=== PATIENT | male | born 1965 | race Caucasian/White ===

== ENCOUNTER 2018-06-11 15:37 | Inpatient (IN) | payer SELFPAY ==
[2018-06-11] VITALS (10 sets, daily range): BP systolic 125–158; BP diastolic 58–91; PULSE 61–87; RESP 14–20; TEMP 36.6–36.9; O2SAT 97–99; BMI 25.7; BMI 24.9
--- NOTE | 2018-06-11 15:45 | ED.RN ---
pt weakness to left arm started 8 days ago, weakness progressively worse, took him over an hour to tie his shoes this am thats when i figured i should probably get checked out.
--- NOTE | 2018-06-11 15:46 | RAD_ITS ---
STUDY: X-RAY CHEST REASON FOR EXAM: Male, 52 years old. PINCH NERVE FEELING TO LEFT SHOULDER WEEK HALF AGO APPX. DECREASED COORDINATION IN LEFT HAND. SLIGHT TINGLING TO LEFT FACE TECHNIQUE: Frontal and lateral views of the chest. COMPARISON: None. FINDINGS: The lungs are clear and expanded. There is no demonstrated pleural abnormality. Normal size heart. Normal mediastinum and anuel. Normal visualized pulmonary arteries. Normal visualized aortic arch and descending thoracic aorta. There are diffuse degenerative changes of the visualized thoracic spine. There is degenerative osteoarthritis of the bilateral shoulders. There is no demonstrated abnormality of the visualized soft tissue structures of the upper abdomen. RAD/Chest PA and Lateral IMPRESSION: Degenerative changes, as described above. No demonstrated acute cardiopulmonary process. Electronically Signed: Marie Caldera MD at 16:25 EDT Tel , Service support ,
--- NOTE | 2018-06-11 15:46 | EKG12_ITS ---
Test Reason : NEURO S/SX Blood Pressure : / mmHG Vent. Rate : 062 BPM Atrial Rate : 062 BPM P-R Int : 112 ms QRS Dur : 092 ms QT Int : 418 ms P-R-T Axes : 071 014 066 degrees QTc Int : 424 ms Normal sinus rhythm Normal ECG Confirmed by ORA YANES, YESSI ([id number]), make up editor MYRA HARRIS ([id number]) on 06/14/2018 2:49:25 PM Referred By: Matt Joyce Confirmed By:YESSI PAYAN MD
--- NOTE | 2018-06-11 15:46 | CT_ITS ---
STUDY: CT BRAIN WITHOUT CONTRAST REASON FOR EXAM: Male, 52 years old. LT FACE NUMBNESS, LOSS OF LEFT ARM CONTROL RADIATION DOSAGE (If Supplied By Facility): CTDIvol = ( 60.81 ) mGy, DLP = ( 1044.28 ) mGycm TECHNIQUE: Transaxial CT imaging of the brain was performed without administration of intravenous contrast material. Individualized dose optimization techniques were used for this CT. COMPARISON: None. FINDINGS: Normal soft tissue structures. Normal calvarium. Normal size ventricles and extra-axial spaces for the patient's age. There are areas of decreased attenuation within the white matter tracts of the supratentorial brain, consistent with microvascular disease changes. There is a cortical and subcortical decrease attenuation lesion in the right parietal lobe and right frontal lobe consistent with a subacute ischemic lesion in the right middle cerebral artery territory. Normal basal ganglia and thalami. Normal brainstem. Normal cerebellum. There is no intracranial hemorrhage. There are no findings of an acute ischemic infarction. Normal visualized paranasal sinuses. CT/Brain/Head without Contrast IMPRESSION: Chronic involutional changes of the brain. There is a cortical and subcortical decrease attenuation lesion in the right parietal lobe and right frontal lobe consistent with a subacute ischemic lesion in the right middle cerebral artery territory. Electronically Signed: Marie Caldera MD at 16:18 EDT Tel , Service support ,
--- NOTE | 2018-06-11 15:49 | ED.DCSUM_ITS ---
- ER Visit Summary Date of Service: 06/11/18 Chief Complaint: Left arm weakness History of Present Illness: The patient is a 52 M 2 weeks ago he had a pinched nerve on the left upper scapular region of his back. 8 days ago the left arm became weak and he had difficulty controlling it noting tingling especially in the fingers and hand. He states that as he walks he feels like he bumps into things with the arm. Denies any vision, speech, or swallowing changes. No palpitations. No leg symptoms. He states that when the arm stopped working he had a slight headache and was a little bit dizzy. Those symptoms have resolved. He is a smoker and denies any other medical problems. Physical Examination: Afebrile vital signs stable Gen: Well-nourished well-developed Head: Normocephalic atraumatic Eyes: Perrl EOMI ENT: TMs clear no rhinorrhea moist mucous membranes Neck: Supple no lymphadenopathy no JVD nontender CVS: Regular rate rhythm no murmurs normal S1-S2 Respiratory: No distress clear to auscultation bilaterally chest nontender Abdomen: Soft nontender nondistended normal bowel sounds no masses Back: Nontender Extremity: Nontender no edema Skin: Normal color no rash Neuro: alert orientated ?3 CN II-XII intact the left arm is noticeably weaker than the right but is able to stay up off the bed for 10 seconds. It is ataxic. He has decreased sensation compared to the right. Psych: Normal affect normal mood Test Results: CT demonstrated an area of subacute stroke. CTA was performed and shows no obvious large vessel occlusion. Basic labs negative. Emergency Department Course and Treatment: Plan is admission into the hospital Impression: 1. Subacute ischemic stroke This note was generated with [employer] dictation software. It may contain incorrect words, spelling, and punctuation that were not noted in review of the chart prior to signing ED Disposition - Plan for ED Patient: Chief Complaint: Weakness Referrals: NOT,DEFINED [NON-STAFF] -
--- NOTE | 2018-06-11 15:53 | NURSING ---
NO OLD EKGS
[2018-06-11 16:17] LABS: Absolute Lymphocyte Count 1.55 X10^3/ul (0.83-4.51); Absolute Neutrophil Count 2.1 X10^3/uL (2.0-7.7); Eosinophils% 2.4 % (0-5); Hematocrit 46.6 % (40-54); Hemoglobin 16.1 g/dl (13.0-16.5); Lymphocyte # 1.55 X10^3/ul (4.0); Mean Corp Hgb Conc 34.5 g/gl (32-36); Mean Platelet Vol. 11.6 fl (6.2-12.0); Monocyte# 0.46 X10^3/uL; Neutrophil # 2.08 X10^3/uL (2.7-7.7); Neutrophil % 49.6 % (47-70); POSITIVE COUNT NO; POSITIVE DIFFERENTIAL NO; POSITIVE MORPHOLOGY NO; Platelet Count 134 K/mm3 (150-450); RBC Distribution Width CV 13.5 % (11.6-14.6); RBC Distribution Width SD 41.3 fl (35.1-43.9); Red Blood Count 5.55 M/mm3 (4.6-6.2); White Blood Count 4.2 K/mm3 (4.4-11.0)
--- NOTE | 2018-06-11 16:23 | CT_ITS ---
STUDY: CTA OF THE BRAIN REASON FOR EXAM: Male, 52 years old. Cerebral vascular accident RADIATION DOSAGE (If Supplied By Facility): DLP = ( 851 ) mGycm TECHNIQUE: CT angiography was performed with a multi-detector CT scanner. Data acquisition was obtained from the skull base through the vertex following intravenous administration of 100 ml of Isovue-370. MIP images were reconstructed from the axial data set. Post-processing of the angiographic images was performed, with multiplanar reformation and 3D reconstruction. Individualized dose optimization techniques were used for this CT. COMPARISON: CTA neck same date. FINDINGS: Normal bilateral petrous carotid arteries. Normal right cavernous carotid artery with a normal supraclinoid bifurcation. Normal left cavernous carotid artery with a normal supraclinoid bifurcation. Normal right A1 segments of the anterior cerebral artery. Normal left A1 segments of the anterior cerebral artery. Normal intact anterior communicating artery (ACOM). Normal bilateral A2 segments of the anterior cerebral arteries. Normal right M1 and M2 segments of the middle cerebral arteries, with a normal M1 bifurcation. Normal left M1 and M2 segments of the middle cerebral arteries, with a normal M1 bifurcation. Normal right posterior communicating artery (PCOM). Normal left posterior communicating artery (PCOM). Normal bilateral vertebral arteries. Normal basilar artery with a normal basilar bifurcation. The visualized bilateral superior cerebellar (SCA) arteries are normal. Normal bilateral P1, P2 and visualized P3 segments of the posterior cerebral arteries. There is no demonstrated aneurysm of the [place]. There is no demonstrated abnormality of the visualized brain. CT/CTA Neck W/WO Contrast IMPRESSION: Normal [place] without a demonstrated aneurysm or hemodynamically significant stenosis. Electronically Signed: Reed Mathis, at 17:11 EDT Tel , Service support , STUDY: CTA NECK WITH CONTRAST REASON FOR EXAM: Male, 52 years old. Cerebrovascular accident RADIATION DOSAGE (If Supplied By Facility): DLP = ( 8 ) mGycm TECHNIQUE: CT angiography with multi-detector data acquisition was performed from the aortic arch to the skull base following intravenous administration of 100ML ml of Isovue 370 contrast. MIP images were reconstructed from the axial data set. Post-processing of the angiographic images was performed, with multiplanar reformation and 3D reconstruction. Individualized dose optimization techniques were used for this CT. COMPARISON: None. FINDINGS: Minimally ectatic aortic arch 3.3 cm. Patent bovine cervical arch branching. Normal subclavian arteries. Calcified plaque of the right carotid bulb and proximal ICA with less than 50% stenosis. Calcified plaque of the left carotid bulb and proximal ICA. Least dimension of the proximal ICA approximately 1.8 mm widening thereafter to a caliber of 5.3 mm. Approximate 70% stenosis. Patent thereafter into the skull base. Next line bilaterally no carotid dissection. Normal bilateral cervical vertebral arteries On survey of the cervical soft tissues there is asymmetric mild enlargement of the right tonsillar soft tissues as compared to the left and direct visualization is recommended for further assessment. The appearance is nonspecific. There is shotty lymphadenopathy of the cervical chains bilaterally, not pathologically enlarged. There is moderate symmetric enlargement of the right thyroid gland compared to the left. IMPRESSION:. Proximal left ICA stenosis in the range of 70%. Proximal right ICA stenosis less than 50%. No dissection. Normal cervical vertebral arteries. Asymmetry in the thickness of tonsillar soft tissues right greater than left require further clinical correlation. Right greater than left thyroid enlargement. Stenosis (if any)is quantified according to The [place] Symptomatic Carotid Endarterectomy Trial (NASCET). Crabber H, et al. Quantitative Vascular Measurements in Arterial Occlusive Disease. [employer] 2005;25:6513-1613. Electronically Signed: Reed Mathis, at 17:17 EDT Tel , Service support ,
--- NOTE | 2018-06-11 16:23 | CT_ITS ---
STUDY: CTA OF THE BRAIN REASON FOR EXAM: Male, 52 years old. Cerebral vascular accident RADIATION DOSAGE (If Supplied By Facility): DLP = ( 851 ) mGycm TECHNIQUE: CT angiography was performed with a multi-detector CT scanner. Data acquisition was obtained from the skull base through the vertex following intravenous administration of 100 ml of Isovue-370. MIP images were reconstructed from the axial data set. Post-processing of the angiographic images was performed, with multiplanar reformation and 3D reconstruction. Individualized dose optimization techniques were used for this CT. COMPARISON: CTA neck same date. FINDINGS: Normal bilateral petrous carotid arteries. Normal right cavernous carotid artery with a normal supraclinoid bifurcation. Normal left cavernous carotid artery with a normal supraclinoid bifurcation. Normal right A1 segments of the anterior cerebral artery. Normal left A1 segments of the anterior cerebral artery. Normal intact anterior communicating artery (ACOM). Normal bilateral A2 segments of the anterior cerebral arteries. Normal right M1 and M2 segments of the middle cerebral arteries, with a normal M1 bifurcation. Normal left M1 and M2 segments of the middle cerebral arteries, with a normal M1 bifurcation. Normal right posterior communicating artery (PCOM). Normal left posterior communicating artery (PCOM). Normal bilateral vertebral arteries. Normal basilar artery with a normal basilar bifurcation. The visualized bilateral superior cerebellar (SCA) arteries are normal. Normal bilateral P1, P2 and visualized P3 segments of the posterior cerebral arteries. There is no demonstrated aneurysm of the [place]. There is no demonstrated abnormality of the visualized brain. CT/CTA Head W/WO Contrast IMPRESSION: Normal [place] without a demonstrated aneurysm or hemodynamically significant stenosis. Electronically Signed: Reed Mathis, at 17:11 EDT Tel , Service support , STUDY: CTA NECK WITH CONTRAST REASON FOR EXAM: Male, 52 years old. Cerebrovascular accident RADIATION DOSAGE (If Supplied By Facility): DLP = ( 8 ) mGycm TECHNIQUE: CT angiography with multi-detector data acquisition was performed from the aortic arch to the skull base following intravenous administration of 100ML ml of Isovue 370 contrast. MIP images were reconstructed from the axial data set. Post-processing of the angiographic images was performed, with multiplanar reformation and 3D reconstruction. Individualized dose optimization techniques were used for this CT. COMPARISON: None. FINDINGS: Minimally ectatic aortic arch 3.3 cm. Patent bovine cervical arch branching. Normal subclavian arteries. Calcified plaque of the right carotid bulb and proximal ICA with less than 50% stenosis. Calcified plaque of the left carotid bulb and proximal ICA. Least dimension of the proximal ICA approximately 1.8 mm widening thereafter to a caliber of 5.3 mm. Approximate 70% stenosis. Patent thereafter into the skull base. Next line bilaterally no carotid dissection. Normal bilateral cervical vertebral arteries On survey of the cervical soft tissues there is asymmetric mild enlargement of the right tonsillar soft tissues as compared to the left and direct visualization is recommended for further assessment. The appearance is nonspecific. There is shotty lymphadenopathy of the cervical chains bilaterally, not pathologically enlarged. There is moderate symmetric enlargement of the right thyroid gland compared to the left. IMPRESSION:. Proximal left ICA stenosis in the range of 70%. Proximal right ICA stenosis less than 50%. No dissection. Normal cervical vertebral arteries. Asymmetry in the thickness of tonsillar soft tissues right greater than left require further clinical correlation. Right greater than left thyroid enlargement. Stenosis (if any)is quantified according to The [place] Symptomatic Carotid Endarterectomy Trial (NASCET). Lumber Salvager H, et al. Quantitative Vascular Measurements in Arterial Occlusive Disease. [employer] 2005;25:5359-5594. Electronically Signed: Reed Mathis, at 17:17 EDT Tel , Service support ,
[2018-06-11 16:31] LABS: ALB/GLOB Ratio 1.1 RATIO (0.9-2.4); AST(SGOT) 20 U/L (15-37); Alanine Aminotransfer ALT/SGPT 35 U/L (16-61); Albumin, Serum 3.6 g/dL (3.2-5.0); Alkaline Phosphatase 110 U/L (45-117); Anion Gap 8 (5-15); BUN 11 mg/dL (7-18); BUN/Creat Ratio 15.1 RATIO (10-20); Calcium,Total 8.8 mg/dL (8.5-10.1); Chloride 106 mmol/L (98-107); Creatinine, Serum 0.73 mg/dL (0.70-1.30); EST Glomerular Filtration Rate 121 mL/min (>60); Est Glom Filt Rate - Afr Amer 146 mL/min (>60); Estimated Creatinine Clearance 121.06 ml/min; Globulin 3.4 g/dL (2.2-4.2); Glucose 117 mg/dL (74-106); Potassium 3.8 mmol/L (3.5-5.1); Sodium Level 141 mmol/L (136-145)
[2018-06-11 16:33] LABS: International Normalized Ratio 1.1
[2018-06-11 16:34] LABS: Partial Thromboplast Time 28.5 Seconds (24.1-36.2)
--- NOTE | 2018-06-11 19:12 | PCM.HP.STD ---
Problem List (1) CVA (cerebral vascular accident) Status: Acute History of Present Illness Date of Admission: 06/11/18 Chief Complaint: left arm weakness and ataxia The patient is a 52 year old M diana with a seven-day history of left arm weakness and ataxia. Came to the emergency room and had a CAT scan that showed cortical and subcortical decreased attenuation within the right part parietal lobe and right frontal lobe consistent with subacute ischemic lesion in the right MCA territory. CTA was unremarkable. CTA of the neck showed 70% stenosis of the left carotid bulb and right the carotid bulb of less than 50% stenosis. Patient has never had a stroke before. Patient be admitted for further stroke workup. [] Past Medical History Allergies No Known Allergies Allergy (Unverified 06/11/18 15:26) Home Medications: Ambulatory Orders Medication Instructions Recorded NK 06/11/18 Lives: Alone Smoking Status: Heavy Smoker (>10/day) Tobacco Use: Cigarettes Alcohol: Rare Drugs: None - *Family History Maternal History Items: - - No history of stroke Review of Systems Constitutional: Denies: Chills, Fever, Weight Change Eyes: Denies: Blurred vision, Double vision HEENT: Denies: Head Aches, Sinus Congestion, Sinus Drainage Cardiovascular: Denies: Chest Pain, Palpitations Respiratory: Denies: Cough, Shortness of breath at rest, Sputum production Gastrointestinal: Denies: Abdominal Pain, Nausea, Vomiting Genitourinary: Denies: Dysuria Musculoskeletal: Denies: Joint Pain, Joint Tenderness Skin: Denies: Rash, Wounds Neurological: Reports: Incoordination - Left upper extremity, Numbness - Left upper extremity. Denies: Focal weakness, Tingling Psychiatric: Denies: Anxiety, Depression Endocrine: Denies: Change in Body Habitus Hematologic/ Lymphatic: Denies: Easy Bruising, Easy Bleeding, Hx of blood clot Comment: All review of systems are negative except as mentioned in the history of present illness and the other review of systems. VTE Information - Inpt Only VTE Present on Admission: No VTE Mechan Device Prophylaxis: None VTE Pharm Prophylaxis ordered?: Yes Patient Problems: Active and Suspected Problems (Last Reviewed 06/11/18 @ 17:13 by RONNY Harper) CVA (cerebral vascular accident) (Acute) - Physical Exam General: Alert, Cooperative, No apparent distress HEENT: Atraumatic, PERRLA, EOMI, Normocephalic Oral: Moist Mucosa, No Gingival or Mucosal Lesions/ Ulcerations Neck: Negative Carotid Bruits, No Nodes, Thyroid Normal Size and Texture Lungs: Clear to auscultation, Normal air movement, No rhonchi, No wheeze Cardiovascular: Regular rate, Regular Rhythm, Normal S1, Normal S2, No murmurs Abdomen: Bowel Sounds Present, Soft, Non Tender, Non-Distended, No Hepato-splenomegaly Extremities: No edema, No Calf Tenderness Skin: No rashes, No breakdown Musculoskeletal: No Tenderness to Palpation of Joints or Extremities, No Muscle Wasting, Cachexia Neurological: Cranial nerves II-XII grossly intact, Deep Tendon Reflexes 2+/4 and Symmetrical, Muscle tone normal, Coordination normal - With the exception of the left upper extremity with patient had noted ataxia., - - Muscle strength 3 out of 5 in the left upper extremity. 5/5 in the right upper extremity, right lower extremity and left lower extremity. Psych/Mental Status: Normal Affect, Appropriate Vital Signs Temp Pulse Resp BP Pulse Ox 36.6 C 80 16 126/58 H 97 06/11/18 15:45 06/11/18 18:18 06/11/18 18:18 06/11/18 18:18 06/11/18 18:18 Oxygen Delivery Method Room Air Weight: 78.925 kg Body Mass Index (BMI) 25.7 Laboratory Tests Past 24 Hrs 06/11/18 06/11/18 06/11/18 15:55 15:55 15:55 WBC 4.2 L RBC 5.55 Hgb 16.1 Hct 46.6 MCV 84.0 MCH 29.0 MCHC 34.5 RDW 13.5 RDW Differential 41.3 Plt Count 134 L MPV 11.6 Immature Gran % (Auto) 0.000 Neut % (Auto) 49.6 Lymph % (Auto) 37.0 [place] % (Auto) 11.0 H Eos % (Auto) 2.4 Baso % (Auto) 0.0 Absolute Neuts (auto) 2.1 Absolute Lymphs (auto) 1.55 Total Counted Not Reportable PT 14.0 INR 1.1 APTT 28.5 Sodium 141 Potassium 3.8 Chloride 106 Carbon Dioxide 27.0 Anion Gap 8 BUN 11 Creatinine 0.73 Estim Creat Clear Calc 121.06 Est GFR (MDRD) Af Amer 146 Est GFR (MDRD) Non-Af 121 BUN/Creatinine Ratio 15.1 Glucose 117 H Calcium 8.8 Total Bilirubin 0.40 AST 20 ALT 35 Alkaline Phosphatase 110 Total Protein 7.0 Albumin 3.6 Globulin 3.4 Albumin/Globulin Ratio 1.1 Clinical Impression(s) from Imaging Studies Brain CT 06/11/18 15:46 IMPRESSION: Chronic involutional changes of the brain. There is a cortical and subcortical decrease attenuation lesion in the right parietal lobe and right frontal lobe consistent with a subacute ischemic lesion in the right middle cerebral artery territory. Electronically Signed: Marie Caldera MD at 16:18 EDT Tel , Service support , Chest X-Ray 06/11/18 15:46 IMPRESSION: Degenerative changes, as described above. No demonstrated acute cardiopulmonary process. Electronically Signed: Marie Caldera MD at 16:25 EDT Tel , Service support , Head CTA 06/11/18 16:23 IMPRESSION: Normal [place] without a demonstrated aneurysm or hemodynamically significant stenosis. Electronically Signed: Reed Mathis at 17:11 EDT Tel , Service support , STUDY: CTA NECK WITH CONTRAST REASON FOR EXAM: Male, 52 years old. Cerebrovascular accident RADIATION DOSAGE (If Supplied By Facility): DLP = ( 8 ) mGycm TECHNIQUE: CT angiography with multi-detector data acquisition was performed from the aortic arch to the skull base following intravenous administration of 100ML ml of Isovue 370 contrast. MIP images were reconstructed from the axial data set. Post-processing of the angiographic images was performed, with multiplanar reformation and 3D reconstruction. Individualized dose optimization techniques were used for this CT. COMPARISON: None. FINDINGS: Minimally ectatic aortic arch 3.3 cm. Patent bovine cervical arch branching. Normal subclavian arteries. Calcified plaque of the right carotid bulb and proximal ICA with less than 50% stenosis. Calcified plaque of the left carotid bulb and proximal ICA. Least dimension of the proximal ICA approximately 1.8 mm widening thereafter to a caliber of 5.3 mm. Approximate 70% stenosis. Patent thereafter into the skull base. Next line bilaterally no carotid dissection. Normal bilateral cervical vertebral arteries On survey of the cervical soft tissues there is asymmetric mild enlargement of the right tonsillar soft tissues as compared to the left and direct visualization is recommended for further assessment. The appearance is nonspecific. There is shotty lymphadenopathy of the cervical chains bilaterally, not pathologically enlarged. There is moderate symmetric enlargement of the right thyroid gland compared to the left. IMPRESSION:. Proximal left ICA stenosis in the range of 70%. Proximal right ICA stenosis less than 50%. No dissection. Normal cervical vertebral arteries. Asymmetry in the thickness of tonsillar soft tissues right greater than left require further clinical correlation. Right greater than left thyroid enlargement. Stenosis (if any)is quantified according to The [place] Symptomatic Carotid Endarterectomy Trial (NASCET). Dena H, et al. Quantitative Vascular Measurements in Arterial Occlusive Disease. [employer] 2005;25:8795-7407. Electronically Signed: Reed Mathis, at 17:17 EDT Tel , Service support , ADDENDUM: 06/11/18 1834 IMPRESSION: Normal [place] without a demonstrated aneurysm or hemodynamically significant stenosis. Electronically Signed: Reed Mathis, at 17:11 EDT Tel , Service support , STUDY: CTA NECK WITH CONTRAST REASON FOR EXAM: Male, 52 years old. Cerebrovascular accident RADIATION DOSAGE (If Supplied By Facility): DLP = ( 8 ) mGycm TECHNIQUE: CT angiography with multi-detector data acquisition was performed from the aortic arch to the skull base following intravenous administration of 100ML ml of Isovue 370 contrast. MIP images were reconstructed from the axial data set. Post-processing of the angiographic images was performed, with multiplanar reformation and 3D reconstruction. Individualized dose optimization techniques were used for this CT. COMPARISON: None. FINDINGS: Minimally ectatic aortic arch 3.3 cm. Patent bovine cervical arch branching. Normal subclavian arteries. Calcified plaque of the right carotid bulb and proximal ICA with less than 50% stenosis. Calcified plaque of the left carotid bulb and proximal ICA. Least dimension of the proximal ICA approximately 1.8 mm widening thereafter to a caliber of 5.3 mm. Approximate 70% stenosis. Patent thereafter into the skull base. Next line bilaterally no carotid dissection. Normal bilateral cervical vertebral arteries On survey of the cervical soft tissues there is asymmetric mild enlargement of the right tonsillar soft tissues as compared to the left and direct visualization is recommended for further assessment. The appearance is nonspecific. There is shotty lymphadenopathy of the cervical chains bilaterally, not pathologically enlarged. There is moderate symmetric enlargement of the right thyroid gland compared to the left. IMPRESSION:. Proximal left ICA stenosis in the range of 70%. Proximal right ICA stenosis less than 50%. No dissection. Normal cervical vertebral arteries. Asymmetry in the thickness of tonsillar soft tissues right greater than left require further clinical correlation. Right greater than left thyroid enlargement. Stenosis (if any)is quantified according to The [place] Symptomatic Carotid Endarterectomy Trial (NASCET). Dena H, et al. Quantitative Vascular Measurements in Arterial Occlusive Disease. [employer] 2005;25:4212-0522. Electronically Signed: Reed Mathis, at 17:17 EDT Tel , Service support , ADDENDUM: 06/11/18 1834 Neck CTA 06/11/18 16:23 IMPRESSION: Normal [place] without a demonstrated aneurysm or hemodynamically significant stenosis. Electronically Signed: Reed Mathis, at 17:11 EDT Tel , Service support , STUDY: CTA NECK WITH CONTRAST REASON FOR EXAM: Male, 52 years old. Cerebrovascular accident RADIATION DOSAGE (If Supplied By Facility): DLP = ( 8 ) mGycm TECHNIQUE: CT angiography with multi-detector data acquisition was performed from the aortic arch to the skull base following intravenous administration of 100ML ml of Isovue 370 contrast. MIP images were reconstructed from the axial data set. Post-processing of the angiographic images was performed, with multiplanar reformation and 3D reconstruction. Individualized dose optimization techniques were used for this CT. COMPARISON: None. FINDINGS: Minimally ectatic aortic arch 3.3 cm. Patent bovine cervical arch branching. Normal subclavian arteries. Calcified plaque of the right carotid bulb and proximal ICA with less than 50% stenosis. Calcified plaque of the left carotid bulb and proximal ICA. Least dimension of the proximal ICA approximately 1.8 mm widening thereafter to a caliber of 5.3 mm. Approximate 70% stenosis. Patent thereafter into the skull base. Next line bilaterally no carotid dissection. Normal bilateral cervical vertebral arteries On survey of the cervical soft tissues there is asymmetric mild enlargement of the right tonsillar soft tissues as compared to the left and direct visualization is recommended for further assessment. The appearance is nonspecific. There is shotty lymphadenopathy of the cervical chains bilaterally, not pathologically enlarged. There is moderate symmetric enlargement of the right thyroid gland compared to the left. IMPRESSION:. Proximal left ICA stenosis in the range of 70%. Proximal right ICA stenosis less than 50%. No dissection. Normal cervical vertebral arteries. Asymmetry in the thickness of tonsillar soft tissues right greater than left require further clinical correlation. Right greater than left thyroid enlargement. Stenosis (if any)is quantified according to The [place] Symptomatic Carotid Endarterectomy Trial (NASCET). Dena H, et al. Quantitative Vascular Measurements in Arterial Occlusive Disease. [employer] 2005;25:6458-1235. Electronically Signed: Reed Mathis, at 17:17 EDT Tel , Service support , ADDENDUM: 06/11/181834 ADDENDUM: 06/11/181834 IMPRESSION: Normal [place] without a demonstrated aneurysm or hemodynamically significant stenosis. Electronically Signed: Reed Mathis, at 17:11 EDT Tel , Service support , STUDY: CTA NECK WITH CONTRAST REASON FOR EXAM: Male, 52 years old. Cerebrovascular accident RADIATION DOSAGE (If Supplied By Facility): DLP = ( 8 ) mGycm TECHNIQUE: CT angiography with multi-detector data acquisition was performed from the aortic arch to the skull base following intravenous administration of 100ML ml of Isovue 370 contrast. MIP images were reconstructed from the axial data set. Post-processing of the angiographic images was performed, with multiplanar reformation and 3D reconstruction. Individualized dose optimization techniques were used for this CT. COMPARISON: None. FINDINGS: Minimally ectatic aortic arch 3.3 cm. Patent bovine cervical arch branching. Normal subclavian arteries. Calcified plaque of the right carotid bulb and proximal ICA with less than 50% stenosis. Calcified plaque of the left carotid bulb and proximal ICA. Least dimension of the proximal ICA approximately 1.8 mm widening thereafter to a caliber of 5.3 mm. Approximate 70% stenosis. Patent thereafter into the skull base. Next line bilaterally no carotid dissection. Normal bilateral cervical vertebral arteries On survey of the cervical soft tissues there is asymmetric mild enlargement of the right tonsillar soft tissues as compared to the left and direct visualization is recommended for further assessment. The appearance is nonspecific. There is shotty lymphadenopathy of the cervical chains bilaterally, not pathologically enlarged. There is moderate symmetric enlargement of the right thyroid gland compared to the left. IMPRESSION:. Proximal left ICA stenosis in the range of 70%. Proximal right ICA stenosis less than 50%. No dissection. Normal cervical vertebral arteries. Asymmetry in the thickness of tonsillar soft tissues right greater than left require further clinical correlation. Right greater than left thyroid enlargement. Stenosis (if any)is quantified according to The [place] Symptomatic Carotid Endarterectomy Trial (NASCET). [employer] H, et al. Quantitative Vascular Measurements in Arterial Occlusive Disease. [employer] 2005;25:9564-7183. Electronically Signed: Reed Mathis, at 17:17 EDT Tel , Service support , Assessment/Plan All Active Problems (Last Reviewed 06/11/18 @ 17:13 by RONNY Harper) CVA (cerebral vascular accident) (Acute) 1. Stroke Subacute at the time of onset was likely last week when his symptoms began Complete stroke workup with an MRI of the brain, echocardiogram, neurology consultation, physical and occupational therapy evaluate Check bedside swallow evaluation. If patient fails then consult speech therapy Aspirin and high intensity statin Patient advised that smoking is the biggest preventable risk factor for his stroke and advised to stop 2. Carotid stenosis Bilateral but only 50% on the right. Will need to be followed up as outpatient no indication for carotid endarterectomy now 3. Tobacco abuse: Advised cessation. 4. DVT prophylaxis with Lovenox Discussed with the patient's brother at bedside. Code Visit Inpatient E&M: 91996 Init Hosp L3
--- NOTE | 2018-06-11 19:17 | HP.PCM_ITS ---
Problem List (1) CVA (cerebral vascular accident) Status: Acute History of Present Illness Date of Admission: 06/11/18 Chief Complaint: left arm weakness and ataxia The patient is a 52 year old M diana with a seven-day history of left arm weakness and ataxia. Came to the emergency room and had a CAT scan that showed cortical and subcortical decreased attenuation within the right part parietal lobe and right frontal lobe consistent with subacute ischemic lesion in the right MCA territory. CTA was unremarkable. CTA of the neck showed 70% stenosis of the left carotid bulb and right the carotid bulb of less than 50% stenosis. Patient has never had a stroke before. Patient be admitted for further stroke workup. [] Past Medical History Allergies No Known Allergies Allergy (Unverified 06/11/18 15:26) Home Medications: Ambulatory Orders Medication Instructions Recorded NK 06/11/18 Lives: Alone Smoking Status: Heavy Smoker (>10/day) Tobacco Use: Cigarettes Alcohol: Rare Drugs: None - *Family History Maternal History Items: - - No history of stroke Review of Systems Constitutional: Denies: Chills, Fever, Weight Change Eyes: Denies: Blurred vision, Double vision HEENT: Denies: Head Aches, Sinus Congestion, Sinus Drainage Cardiovascular: Denies: Chest Pain, Palpitations Respiratory: Denies: Cough, Shortness of breath at rest, Sputum production Gastrointestinal: Denies: Abdominal Pain, Nausea, Vomiting Genitourinary: Denies: Dysuria Musculoskeletal: Denies: Joint Pain, Joint Tenderness Skin: Denies: Rash, Wounds Neurological: Reports: Incoordination - Left upper extremity, Numbness - Left upper extremity. Denies: Focal weakness, Tingling Psychiatric: Denies: Anxiety, Depression Endocrine: Denies: Change in Body Habitus Hematologic/ Lymphatic: Denies: Easy Bruising, Easy Bleeding, Hx of blood clot Comment: All review of systems are negative except as mentioned in the history of present illness and the other review of systems. VTE Information - Inpt Only VTE Present on Admission: No VTE Mechan Device Prophylaxis: None VTE Pharm Prophylaxis ordered?: Yes Patient Problems: Active and Suspected Problems (Last Reviewed 06/11/18 @ 17:13 by RONNY Harper) CVA (cerebral vascular accident) (Acute) - Physical Exam General: Alert, Cooperative, No apparent distress HEENT: Atraumatic, PERRLA, EOMI, Normocephalic Oral: Moist Mucosa, No Gingival or Mucosal Lesions/ Ulcerations Neck: Negative Carotid Bruits, No Nodes, Thyroid Normal Size and Texture Lungs: Clear to auscultation, Normal air movement, No rhonchi, No wheeze Cardiovascular: Regular rate, Regular Rhythm, Normal S1, Normal S2, No murmurs Abdomen: Bowel Sounds Present, Soft, Non Tender, Non-Distended, No Hepato-spl enomegaly Extremities: No edema, No Calf Tenderness Skin: No rashes, No breakdown Musculoskeletal: No Tenderness to Palpation of Joints or Extremities, No Muscle Wasting, Cachexia Neurological: Cranial nerves II-XII grossly intact, Deep Tendon Reflexes 2+/4 and Symmetrical, Muscle tone normal, Coordination normal - With the exception of the left upper extremity with patient had noted ataxia., - - Muscle strength 3 out of 5 in the left upper extremity. 5/5 in the right upper extremity, right lower extremity and left lower extremity. Psych/Mental Status: Normal Affect, Appropriate Vital Signs Temp Pulse Resp BP Pulse Ox 36.6 C 80 16 126/58 H 97 06/11/18 15:45 06/11/18 18:18 06/11/18 18:18 06/11/18 18:18 06/11/18 18:18 Oxygen Delivery Method Room Air Weight: 78.925 kg Body Mass Index (BMI) 25.7 Laboratory Tests Past 24 Hrs 06/11/18 06/11/18 06/11/18 15:55 15:55 15:55 WBC 4.2 L RBC 5.55 Hgb 16.1 Hct 46.6 MCV 84.0 MCH 29.0 MCHC 34.5 RDW 13.5 RDW Differential 41.3 Plt Count 134 L MPV 11.6 Immature Gran % (Auto) 0.000 Neut % (Auto) 49.6 Lymph % (Auto) 37.0 Vernon % (Auto) 11.0 H Eos % (Auto) 2.4 Baso % (Auto) 0.0 Absolute Neuts (auto) 2.1 Absolute Lymphs (auto) 1.55 Total Counted Not Reportable PT 14.0 INR 1.1 APTT 28.5 Sodium 141 Potassium 3.8 Chloride 106 Carbon Dioxide 27.0 Anion Gap 8 BUN 11 Creatinine 0.73 Estim Creat Clear Calc 121.06 Est GFR (MDRD) Af Amer 146 Est GFR (MDRD) Non-Af 121 BUN/Creatinine Ratio 15.1 Glucose 117 H Calcium 8.8 Total Bilirubin 0.40 AST 20 ALT 35 Alkaline Phosphatase 110 Total Protein 7.0 Albumin 3.6 Globulin 3.4 Albumin/Globulin Ratio 1.1 Clinical Impression(s) from Imaging Studies Brain CT 06/11/18 15:46 IMPRESSION: Chronic involutional changes of the brain. There is a cortical and subcortical decrease attenuation lesion in the right parietal lobe and right frontal lobe consistent with a subacute ischemic lesion in the right middle cerebral artery territory. Electronically Signed: Marie Caldera MD at 16:18 EDT Tel , Service support , Chest X-Ray 06/11/18 15:46 IMPRESSION: Degenerative changes, as described above. No demonstrated acute cardiopulmonary process. Electronically Signed: Marie Caldera MD at 16:25 EDT Tel , Service support , Head CTA 06/11/18 16:23 IMPRESSION: Normal [place] without a demonstrated aneurysm or hemodynamically significant stenosis. Electronically Signed: Reed Mathis at 17:11 EDT Tel , Service support , STUDY: CTA NECK WITH CONTRAST REASON FOR EXAM: Male, 52 years old. Cerebrovascular accident RADIATION DOSAGE (If Supplied By Facility): DLP = ( 8 ) mGycm TECHNIQUE: CT angiography with multi-detector data acquisition was performed from the aortic arch to the skull base following intravenous administration of 100ML ml of Isovue 370 contrast. MIP images were reconstructed from the axial data set. Post-processing of the angiographic images was performed, with multiplanar reformation and 3D reconstruction. Individualized dose optimization techniques were used for this CT. COMPARISON: None. FINDINGS: Minimally ectatic aortic arch 3.3 cm. Patent bovine cervical arch branching. Normal subclavian arteries. Calcified plaque of the right carotid bulb and proximal ICA with less than 50% stenosis. Calcified plaque of the left carotid bulb and proximal ICA. Least dimension of the proximal ICA approximately 1.8 mm widening thereafter to a caliber of 5.3 mm. Approximate 70% stenosis. Patent thereafter into the skull base. Next line bilaterally no carotid dissection. Normal bilateral cervical vertebral arteries On survey of the cervical soft tissues there is asymmetric mild enlargement of the right tonsillar soft tissues as compared to the left and direct visualization is recommended for further assessment. The appearance is nonspecific. There is shotty lymphadenopathy of the cervical chains bilaterally, not pathologically enlarged. There is moderate symmetric enlargement of the right thyroid gland compared to the left. IMPRESSION:. Proximal left ICA stenosis in the range of 70%. Proximal right ICA stenosis less than 50%. No dissection. Normal cervical vertebral arteries. Asymmetry in the thickness of tonsillar soft tissues right greater than left require further clinical correlation. Right greater than left thyroid enlargement. Stenosis (if any)is quantified according to The [place] Symptomatic Carotid Endarterectomy Trial (NASCET). Dena H, et al. Quantitative Vascular Measurements in Arterial Occlusive Disease. [employer] 2005;25:8684-4150. Electronically Signed: Reed Mathis, at 17:17 EDT Tel , Service support , ADDENDUM: 06/11/18 1834 IMPRESSION: Normal [place] without a demonstrated aneurysm or hemodynamically significant stenosis. Electronically Signed: Reed Mathis, at 17:11 EDT Tel , Service support , STUDY: CTA NECK WITH CONTRAST REASON FOR EXAM: Male, 52 years old. Cerebrovascular accident RADIATION DOSAGE (If Supplied By Facility): DLP = ( 8 ) mGycm TECHNIQUE: CT angiography with multi-detector data acquisition was performed from the aortic arch to the skull base following intravenous administration of 100ML ml of Isovue 370 contrast. MIP images were reconstructed from the axial data set. Post-processing of the angiographic images was performed, with multiplanar reformation and 3D reconstruction. Individualized dose optimization techniques were used for this CT. COMPARISON: None. FINDINGS: Minimally ectatic aortic arch 3.3 cm. Patent bovine cervical arch branching. Normal subclavian arteries. Calcified plaque of the right carotid bulb and proximal ICA with less than 50% stenosis. Calcified plaque of the left carotid bulb and proximal ICA. Least dimension of the proximal ICA approximately 1.8 mm widening thereafter to a caliber of 5.3 mm. Approximate 70% stenosis. Patent thereafter into the skull base. Next line bilaterally no carotid dissection. Normal bilateral cervical vertebral arteries On survey of the cervical soft tissues there is asymmetric mild enlargement of the right tonsillar soft tissues as compared to the left and direct visualization is recommended for further assessment. The appearance is nonspecific. There is shotty lymphadenopathy of the cervical chains bilaterally, not pathologically enlarged. There is moderate symmetric enlargement of the right thyroid gland compared to the left. IMPRESSION:. Proximal left ICA stenosis in the range of 70%. Proximal right ICA stenosis less than 50%. No dissection. Normal cervical vertebral arteries. Asymmetry in the thickness of tonsillar soft tissues right greater than left require further clinical correlation. Right greater than left thyroid enlargement. Stenosis (if any)is quantified according to The [place] Symptomatic Carotid Endarterectomy Trial (NASCET). [employer] Manager H, et al. Quantitative Vascular Measurements in Arterial Occlusive Disease. [employer] 2005;25:9633-6660. Electronically Signed: Reed Mathis, at 17:17 EDT Tel , Service support , ADDENDUM: 06/11/18 1834 Neck CTA 06/11/18 16:23 IMPRESSION: Normal [place] without a demonstrated aneurysm or hemodynamically significant stenosis. Electronically Signed: Reed Mathis at 17:11 EDT Tel , Service support , STUDY: CTA NECK WITH CONTRAST REASON FOR EXAM: Male, 52 years old. Cerebrovascular accident RADIATION DOSAGE (If Supplied By Facility): DLP = ( 8 ) mGycm TECHNIQUE: CT angiography with multi-detector data acquisition was performed from the aortic arch to the skull base following intravenous administration of 100ML ml of Isovue 370 contrast. MIP images were reconstructed from the axial data set. Post-processing of the angiographic images was performed, with multiplanar reformation and 3D reconstruction. Individualized dose optimization techniques were used for this CT. COMPARISON: None. FINDINGS: Minimally ectatic aortic arch 3.3 cm. Patent bovine cervical arch branching. Normal subclavian arteries. Calcified plaque of the right carotid bulb and proximal ICA with less than 50% stenosis. Calcified plaque of the left carotid bulb and proximal ICA. Least dimension of the proximal ICA approximately 1.8 mm widening thereafter to a caliber of 5.3 mm. Approximate 70% stenosis. Patent thereafter into the skull base. Next line bilaterally no carotid dissection. Normal bilateral cervical vertebral arteries On survey of the cervical soft tissues there is asymmetric mild enlargement of the right tonsillar soft tissues as compared to the left and direct visualization is recommended for further assessment. The appearance is nonspecific. There is shotty lymphadenopathy of the cervical chains bilaterally, not pathologically enlarged. There is moderate symmetric enlargement of the right thyroid gland compared to the left. IMPRESSION:. Proximal left ICA stenosis in the range of 70%. Proximal right ICA stenosis less than 50%. No dissection. Normal cervical vertebral arteries. Asymmetry in the thickness of tonsillar soft tissues right greater than left require further clinical correlation. Right greater than left thyroid enlargement. Stenosis (if any)is quantified according to The [place] Symptomatic Carotid Endarterectomy Trial (NASCET). Dena H, et al. Quantitative Vascular Measurements in Arterial Occlusive Disease. [employer] 2005;25:4233-3507. Electronically Signed: Reed Mathis, at 17:17 EDT Tel , Service support , ADDENDUM: 06/11/181834 ADDENDUM: 06/11/181834 IMPRESSION: Normal [place] without a demonstrated aneurysm or hemodynamically significant stenosis. Electronically Signed: Reed Mathis, at 17:11 EDT Tel , Service support , STUDY: CTA NECK WITH CONTRAST REASON FOR EXAM: Male, 52 years old. Cerebrovascular accident RADIATION DOSAGE (If Supplied By Facility): DLP = ( 8 ) mGycm TECHNIQUE: CT angiography with multi-detector data acquisition was performed from the aortic arch to the skull base following intravenous administration of 100ML ml of Isovue 370 contrast. MIP images were reconstructed from the axial data set. Post-processing of the angiographic images was performed, with multiplanar reformation and 3D reconstruction. Individualized dose optimization techniques were used for this CT. COMPARISON: None. FINDINGS: Minimally ectatic aortic arch 3.3 cm. Patent bovine cervical arch branching. Normal subclavian arteries. Calcified plaque of the right carotid bulb and proximal ICA with less than 50% stenosis. Calcified plaque of the left carotid bulb and proximal ICA. Least dimension of the proximal ICA approximately 1.8 mm widening thereafter to a caliber of 5.3 mm. Approximate 70% stenosis. Patent thereafter into the skull base. Next line bilaterally no carotid dissection. Normal bilateral cervical vertebral arteries On survey of the cervical soft tissues there is asymmetric mild enlargement of the right tonsillar soft tissues as compared to the left and direct visualization is recommended for further assessment. The appearance is nonspecific. There is shotty lymphadenopathy of the cervical chains bilaterally, not pathologically enlarged. There is moderate symmetric enlargement of the right thyroid gland compared to the left. IMPRESSION:. Proximal left ICA stenosis in the range of 70%. Proximal right ICA stenosis less than 50%. No dissection. Normal cervical vertebral arteries. Asymmetry in the thickness of tonsillar soft tissues right greater than left require further clinical correlation. Right greater than left thyroid enlargement. Stenosis (if any)is quantified according to The [place] Symptomatic Carotid Endarterectomy Trial (NASCET). Dena H, et al. Quantitative Vascular Measurements in Arterial Occlusive Disease. [employer] 2005;25:3208-3943. Electronically Signed: Reed Mathis, at 17:17 EDT Tel , Service support , Assessment/Plan All Active Problems (Last Reviewed 06/11/18 @ 17:13 by RONNY Harper) CVA (cerebral vascular accident) (Acute) 1. Stroke * Subacute at the time of onset was likely last week when his symptoms began * Complete stroke workup with an MRI of the brain, echocardiogram, neurology consultation, physical and occupational therapy evaluate * Check bedside swallow evaluation. If patient fails then consult speech therapy * Aspirin and high intensity statin * Patient advised that smoking is the biggest preventable risk factor for his stroke and advised to stop 2. Carotid stenosis * Bilateral but only 50% on the right. Will need to be followed up as outpatient no indication for carotid endarterectomy now 3. Tobacco abuse: Advised cessation. 4. DVT prophylaxis with Lovenox Discussed with the patient's brother at bedside. Code Visit Inpatient E&M: 08216 Init Hosp L3
--- NOTE | 2018-06-11 19:26 | ECHOD_ITS ---
Reason For Study: TIA/CVA Procedure This was a 2D Doppler, Color Flow transthoracic echocardiogram. Exam performed portable in patient room. Left Ventricle Normal LV size. Mild concentric left ventricular hypertrophy. Left ventricular systolic function is normal. The estimated ejection fraction is 55 %. No evidence for diastolic dysfunction. No regional wall motion abnormalities noted. Right Ventricle Normal RV size. Normal systolic function. Atria The left atrium is mildly enlarged. The right atrium is mildly enlarged. Bubble contrast study negative for right to left interatrial shunt. Mitral Valve Normal mitral valve. Tricuspid Valve Normal tricuspid valve. Aortic Valve Normal aortic valve. Trisinus/trileaflet aortic valve. Pulmonic Valve Normal pulmonic valve. Great Vessels Normal aortic root. The pulmonary artery is normal size. Normal inferior vena cava. Pericardium/Pleural No pericardial effusion. Medication Performed a rapid injection of agitated mix of 9 cc saline and 1cc air to assess for atrial septal defect. MMode/2D Measurements & Calculations LVIDd: 5.4 cm IVSd: 1.2 cm Ao root diam: 3.8 cm LVIDs: 4.4 cm LVPWd: 1.3 cm LA dimension: 4.3 cm RVDd: 4.9 cm FS: 18.9 % LAV(MOD-sp4): 79.8 ml LVAd ap4: 36.4 cm2 SV(MOD-sp4): 65.6 ml EDV(MOD-sp4): 134.6 ml EDV(sp4-el): 140.9 ml LVAs ap4: 23.6 cm2 ESV(MOD-sp4): 69.0 ml ESV(sp4-el): 69.3 ml EF(MOD-sp4): 48.7 % EF(sp4-el): 50.8 % SV(sp4-el): 71.6 ml LA A4 area: 24.4 cm2 RA A4 area: 22.0 cm2 Time Measurements MV dec time: 0.22 sec Doppler Measurements & Calculations MV E max pillo: 78.7 cm/sec Lat Peak E' Pillo: 11.5 cm/sec Med Peak E' Pillo: 6.8 cm/sec MV A max pillo: 47.7 cm/sec E/E' lat: 6.9 E/E' med: 11.6 MV E/A: 1.6 MV V2 max: 101.1 cm/sec MV P1/2t max pillo: 100.2 cm/sec Ao V2 max: 142.5 cm/sec MV max P.1 mmHg MV P1/2t: 130.2 msec Ao max P.1 mmHg MV V2 mean: 52.1 cm/sec MV dec slope: 225.4 cm/sec2 Ao V2 mean: 97.6 cm/sec MV mean P.4 mmHg MVA(P1/2t): 1.7 cm2 Ao mean P.2 mmHg MV V2 VTI: 33.7 cm Ao V2 VTI: 26.4 cm LV V1 max: 109.0 cm/sec PA V2 max: 95.3 cm/sec LV V1 max P.7 mmHg LV V1 mean P.0 mmHg LV V1 mean: 66.2 cm/sec LV V1 VTI: 19.1 cm Interpretation Summary Normal LV size. Mild concentric left ventricular hypertrophy. Left ventricular systolic function is normal. The estimated ejection fraction is 55 %. No evidence for diastolic dysfunction. Ordering Physician: Matt Joyce Referring Physician: Matt Joyce Performed By: Donald Hargrove RCS
[2018-06-11] MEDS: Aspirin 325 MG Tablet PO (20:35)
[2018-06-11] MEDS: Atorvastatin Calcium 80 MG Tablet PO (21:30)
[2018-06-12] VITALS (12 sets, daily range): BP systolic 122–140; BP diastolic 63–77; PULSE 56–79; RESP 14–16; TEMP 36.1–37.1; O2SAT 95–98; BMI 24.9
--- NOTE | 2018-06-12 06:00 | MRI_ITS ---
STUDY: MRI BRAIN WITH AND WITHOUT CONTRAST REASON FOR EXAM: Male, 52 years old. CVA, weakness. TECHNIQUE: Standardized multiplanar fat and water weighted pulse sequences were obtained. 8 ml of Gadavist contrast material was administered intravenously for the contrast portion of the examination. COMPARISON: CT head 11 June 2018 FINDINGS: Normal size of the ventricles and extra-axial spaces for the patient's age. There are multiple white matter hyperintensities, distributed throughout the deep white matter tracts of the cerebral hemispheres, consistent with moderate chronic white matter ischemic changes. There is predominant right parietal occipital region of ischemia was scattered areas of cortical ischemia within the right parietal and posterior frontal region consistent with focal areas of acute infarct. Contrast imaging demonstrates enhancement within the region of the right parietal occipital region. Cortical areas involvement the mid rolandic cortex likely corresponding to patient's left arm weakness. Normal T2* images of the brain without demonstrated susceptibility artifact. There is no demonstrated hemosiderin stain. Normal bilateral basal ganglia. Normal thalami. There is no extra-axial fluid accumulation. Normal flow voids within the major intracranial circulation suggesting patency by spin echo criteria. Normal venous enhancement. There is no enhancing intra-axial or extra-axial abnormality. Normal sella turcica, pituitary gland, infundibular stalk, optic chiasm and hypothalamus. Normal tectal plate and pineal gland. Normal midbrain, norma and medulla. Normal cerebellum. Normal basal cisterns. Normal bilateral temporal bones. Normal bilateral internal auditory canals. No demonstrated orbital abnormality, within the constraints of a routine brain study. Normal visualized paranasal sinuses. Normal calvarium and skull base. Normal visualized soft tissue structures. Normal visualized upper cervical spine. MRI/Brain W/WO Contrast IMPRESSION: 1. Findings consistent with right parieto-occipital watershed infarct with scattered areas of enhancement consistent with components of subacute infarct. Additional scattered areas of right parietal/posterior frontal lobe and rolandic cortex acute to subacute infarcts. No evidence of acute intracranial bleed. Electronically Signed: Capo Haley DO at 10:48 EDT , Service support ,
[2018-06-12 07:42] LABS: Cholesterol 94 mg/dL (200); High Density Lipoprotein 33 mg/dL; Triglycerides 67 mg/dL; Very Low Density Lipoprotein 13 mg/dL (5-40)
--- NOTE | 2018-06-12 07:57 | PN_ITS ---
Patient Problems: Active and Suspected Problems (Last Reviewed 06/11/18 @ 17:13 by RONNY Harper) CVA (cerebral vascular accident) (Acute) Subjective: Patient with no acute events since initial presentation. Patient notes left upper extremity weakness and ataxia is similar to ongoing with no marked improvement. Reviewed current workup including MRI with confirmation of recent stroke of decent extension, unremarkable echocardiogram, not severe appearing cholesterol, abnormal thyroid studies with recommendation for radioactive iodide uptake scan to be arranged outpatient. Discussed tobacco use and encouraged cessation. Patient understands awaiting neurology evaluation with possible recommendation for acute rehab transition. Patient denies fevers, chills, nausea, emesis, abdominal pain, chest pain or dyspnea. Objective: Physical Examination: General: awake, alert, oriented x 3 and cooperative, seated upright in bed in no apparent distress. Skin: normal color, turgor, no icterus, cyanosis. HEENT: AT/NC, EOMI, PERRLA, MMM, no carotid bruits although CTA does note less than 50% stenosis right ICA and approximate 70% stenosis left ICA. Lungs: Diminished breath sounds bilateral bases, moderate effort, no rales, ronchi or wheezing. Heart: Regular rate and rhythm; no gallop, rub audible. Abdomen: soft, NTTP, ND, normal BS. Extremities: no cyanosis, clubbing, or edema. Neurological: patient awake, alert, oriented x 3; cognitive function intact; pupils equally reactive to light and accomodation; cranial nerves II-XII grossly normal, moving all 4 extremities, no focal deficits, notable ataxia left upper extremity, strength 3 out of 5, upgoing Babinski left, heel to gerardo and finger to nose appropriate right side, limited finger to nose left side, left heel to gerardo normal-appearing, sensation intact. Psychiatric: affect appears normal, no acute evidence of depressive or anxiety feelings. Vitals/I&O's: Vital Signs Temp Pulse Resp BP Pulse Ox 98.2 F 57 L 14 132/77 H 97 06/12/18 03:48 06/12/18 07:22 06/12/18 03:48 06/12/18 03:48 06/12/18 03:48 Oxygen Delivery Method Room Air Weight: 168 lb 13.985 oz Body Mass Index (BMI) 24.9 Intake and Output for Last 24 Hours 06/10/18 06/11/18 06/12/18 23:59 23:59 23:59 Intake Total 240 / 240 120 / 120 Balance 240 / 240 120 / 120 Laboratory Results 06/11/18 15:55: WBC 4.2 L, RBC 5.55, Hgb 16.1, Hct 46.6, MCV 84.0, MCH 29.0, MCHC 34.5, RDW 13.5, RDW Differential 41.3, Plt Count 134 L, MPV 11.6, Immature Gran % (Auto) 0.000, Neut % (Auto) 49.6, Lymph % (Auto) 37.0, [place] % (Auto) 11.0 H, Eos % (Auto) 2.4, Baso % (Auto) 0.0, Absolute Neuts (auto) 2.1, Absolute Lymphs (auto) 1.55, Total Counted Not Reportable 06/11/18 15:55: PT 14.0, INR 1.1, APTT 28.5 06/11/18 15:55: Sodium 141, Potassium 3.8, Chloride 106, Carbon Dioxide 27.0, Anion Gap 8, BUN 11, Creatinine 0.73, Estim Creat Clear Calc 121.06, Est GFR (MDRD) Af Amer 146, Est GFR (MDRD) Non-Af 121, BUN/Creatinine Ratio 15.1, Glucose 117 H, Calcium 8.8, Total Bilirubin 0.40, AST 20, ALT 35, Alkaline Phosphatase 110, Total Protein 7.0, Albumin 3.6, Globulin 3.4, Albumin/Globulin Ratio 1.1 06/12/18 06:35: Triglycerides 67, Cholesterol 94, LDL Cholesterol 48, VLDL Cholesterol 13, HDL Cholesterol 33 L Current Medications Acetaminophen (Tylenol) 650 mg PO Q6H PRN PRN PRN Reason: Mild Pain (1-3)/Temp > 100.7 F Aspirin (Aspirin, Baby) 81 mg PO DAILY@0800 [facility] Atorvastatin Calcium (Lipitor) 80 mg PO QHS [facility] Last Admin: 06/11/18 21:30 Dose: 80 mg Enoxaparin Sodium (Lovenox) 40 mg SC DAILY@1000 [facility] Influenza Virus Vaccine Quadrival (Fluarix/Fluzone) 0.5 ml IM .ONCE ONE Stop: 06/12/18 10:01 Magnesium Hydroxide (Milk Of Magnesia) 30 ml PO DAILY PRN PRN Reason: Constipation Ondansetron HCl (Zofran) 4 mg IV Q8H PRN PRN PRN Reason: NAUSEA Sodium Chloride () 5 - 30 ml IV UD PRN PRN Reason: SALINE FLUSH Medical Necessity - Tobacco Use Smoking Status: Current every day smoker Tobacco Use: Cigarettes Assessment/Plan All Active Problems (Last Reviewed 06/11/18 @ 17:13 by RONNY Harper) CVA (cerebral vascular accident) (Acute) The patient is a 52 y/o M w/ PMHx: Tobacco use who presents to the [facility] ED on 06/11/18 with history of ongoing L sided upper extremity weakness and ataxia. L sided upper extremity weakness and ataxia secondary to Subacute R MCA Territory CVA: In the ED work-up included CBC w/ WBC 4.2, Hgb 16.1, Plts 134 without marked L shift, unremarkable coags, CMP w/ glucose 117 otherwise not marked, CT Head w/ chronic involutional changes, cortical and subcortical decreased attenuation lesions in the right parietal lobe, right frontal lobe consistent with a subacute ischemic lesion in the right middle cerebral artery territory, CTA Neck w/ minimally ectatic aortic arch 3.3 cm, patent bovine cervical arch branching, normal subclavian arteries, calcified plaque right carotid bulb and proximal ICA with less than 50% stenosis, calcified plaque left carotid bulb and proximal ICA, least dimension proximal ICA proximal 1.8 mm widening thereafter to be caliber of 5.3 mm with approximate 70% stenosis, patent thereafter into the skull base, no carotid dissection, normal bilateral cervical vertebral arteries, CXR w/ chronic changes with no acute process. ED vitals with initial BP 158/87. Admitted to PCU, MRI Brain w/ findings consistent with right parieto-occipital watershed infarct with scattered areas of enhancement consistent with components of subacute infarct, additional scattered areas of right parietal/posterior frontal lobe and rolandic cortex acute to subacute infarct with no acute evidence of intracranial bleed, CT Head w/ normal [place] of [place] without demonstrated aneurysm or significant stenosis, ECHO w/ normal LV size, mild concentric LVH, normal LV systolic function, EF 55%, no evidence for diastolic dysfunction, PT/OT/Speech/Nutrition evaluation per protocol. Given timeline appropriate to initial HTN regimen as sxs x 1 week, added low dose ACEI but if preference for permissive will defer to Neurology, maintain on asa, high dose statin w/ AM FLP w/ TG 67, TChol 94, LDL 48, VLDL 13, HDL 33, fall precautions. Neurology consulted, await input, may be appropriate for dual therapy with plavix for 4 weeks and then transition back to single agent, will await their evaluation. Given presentation suspect will be appropriate to transition to Acute Rehabilitation if amenable per Neurology. (2) BL Carotid Stenosis: CTA Neck w/ minimally ectatic aortic arch 3.3 cm, patent bovine cervical arch branching, normal subclavian arteries, calcified plaque right carotid bulb and proximal ICA with less than 50% stenosis, calcified plaque left carotid bulb and proximal ICA, least dimension proximal ICA proximal 1.8 mm widening thereafter to be caliber of 5.3 mm with approximate 70% stenosis, patent thereafter into the skull base, no carotid dissection, normal bilateral cervical vertebral arteries. Will plan referral to Dr. Alves for evaluation for L CEA. (3) Tobacco Abuse: Encouraged cessation, inpatient consultation per RT, NR if desired. (4) Primary Hyperthyroidism: TSH low, FT4 mildly elevated, consistent w/ primary hyperthyroidism, will need RAIU set-up as outpatient. (5) DVT Prophylaxis: SCDs, lovenox. Code Visit Inpatient E&M: 58785 Subs Hosp L2
[2018-06-12] MEDS: Aspirin 81 MG TAB.CHEW PO (08:03)
[2018-06-12 08:30] LABS: Magnesium 2.2 mg/dL (1.6-2.6); Thyroid Stim Hormone (TSH) < 0.01 uIU/mL (0.358-3.74)
--- NOTE | 2018-06-12 09:02 | CASEMGMT ---
Social Work Assessment Referral Date: 06/12/2018 Date of Assessment: 06/12/2018 Reason for consult: Initial assessment, self pay status Informant: SW Personal Status: SW met with pt as pt is listed as self-pay and to complete initial assessment. SW introduced self and role at [facility]. Pt is alert and orientated x4. Pt states that he lives alone in a two story home with no steps to enter the home. Pt states that he was previously independent with ADLs and that he currently still works. Pt states that he is self employed. Pt denied DME at home. Pt states that his preferred pharmacy is [facility] and he doesn't currently have a PCP. Pt confirms that he doesn't have insurance. SW provided financial resources to pt including HCAP application, prescription assistance, [employer], and [employer]. Pt denied Medicaid application as he states he makes too much for medicaid. SW also provided pt with PCP list. Pt states that his plan is to return home at discharge and denied additional needs or concerns at this time. Substance Abuse Hx: Pt denied Mental Health Hx: Pt denied Plan: Pt wants to return home at discharge. Pt denied additional needs or concerns at this time. Светлана Velasquez CRIME VICTIM SPECIALIST, POWER PLANT OPERATOR
[2018-06-12 09:14] LABS: T4 Free Direct 3.52 ng/dL (0.76-1.46)
[2018-06-12] MEDS: Enoxaparin 40 MG/0.4 ML Syringe SC (09:32)
[2018-06-12] MEDS: Lisinopril 5 MG Tablet PO (09:32)
--- NOTE | 2018-06-12 09:40 | CON.PCM_ITS ---
Reason for Consult Date of Consultation: 06/12/18 Reason for Consultation: cva History of Present Illness: The patient is a 52 year old M right handed white male, smoker, but otherwise healthy, hasnt seen a doctor in many years, reports 9 days ago had acute left arm weakness which has improved but persisted. came to hospital yesterday. po ok. denies recent illness or stress, or insomnia. denies snoring. reports last checked his blood pressure about one month ago and was normal. no f/c/sweats. works as residential real estate appraiser, no exposures. per admit h&p:The patient is a 52 year old M resents with a seven-day history of left arm weakness and ataxia. Came to the emergency room and had a CAT scan that showed cortical and subcortical decreased attenuation within the right part parietal lobe and right frontal lobe consistent with subacute ischemic lesion in the right MCA territory. CTA was unremarkable. CTA of the neck showed 70% stenosis of the left carotid bulb and right the carotid bulb of less than 50% stenosis. Patient has never had a stroke before. Patient be admitted for further stroke workup. Past Medical History Allergies No Known Allergies Allergy (Unverified 06/11/18 15:26) Home Medications: Ambulatory Orders Medication Instructions Recorded NK 06/11/18 Lives: Alone Smoking Status: Current every day smoker Tobacco Use: Cigarettes Alcohol: Rare Drugs: None - *Family History Maternal History Items: - - No history of stroke Review of Systems Constitutional: Denies: Chills, Fever, Weight Change HEENT: Denies: Head Aches, Sinus Congestion, Sinus Drainage Cardiovascular: Denies: Chest Pain, Palpitations Respiratory: Denies: Cough, Shortness of breath at rest, Sputum production Gastrointestinal: Denies: Abdominal Pain, Nausea, Vomiting Genitourinary: Denies: Dysuria Musculoskeletal: Denies: Joint Pain, Joint Tenderness Skin: Denies: Rash, Wounds Neurological: Denies: Numbness, Tingling, Focal weakness Psychiatric: Denies: Anxiety, Depression, Homicidal Ideations, Suicidal Ideations Hematologic/ Lymphatic: Denies: Easy Bruising, Easy Bleeding Patient Problems: Active and Suspected Problems (Last Reviewed 06/11/18 @ 17:13 by RONNY Harper) CVA (cerebral vascular accident) (Acute) - Physical Exam General: Alert, Oriented x3, Cooperative, No apparent distress HEENT: Atraumatic, PERRLA, EOMI Neurological: Cranial nerves II-XII grossly intact, Deep Tendon Reflexes 2+/4 and Symmetrical, Sensory exam intact to light touch and pain, - - left pronator drift and discoord. lle normal Vital Signs Temp Pulse Resp BP Pulse Ox 36.8 C 60 16 140/67 H 98 06/12/18 07:48 06/12/18 07:48 06/12/18 07:48 06/12/18 07:48 06/12/18 07:48 Oxygen Delivery Method Room Air Weight: 76.6 kg Body Mass Index (BMI) 24.9 Intake and Output for Last 24 Hours 06/10/18 06/11/18 06/12/18 23:59 23:59 23:59 Intake Total 240 / 240 120 / 120 Balance 240 / 240 120 / 120 Laboratory Tests Past 24 Hrs 06/11/18 06/11/18 06/11/18 15:55 15:55 15:55 WBC 4.2 L RBC 5.55 Hgb 16.1 Hct 46.6 MCV 84.0 MCH 29.0 MCHC 34.5 RDW 13.5 RDW Differential 41.3 Plt Count 134 L MPV 11.6 Immature Gran % (Auto) 0.000 Neut % (Auto) 49.6 Lymph % (Auto) 37.0 [place] % (Auto) 11.0 H Eos % (Auto) 2.4 Baso % (Auto) 0.0 Absolute Neuts (auto) 2.1 Absolute Lymphs (auto) 1.55 Total Counted Not Reportable PT 14.0 INR 1.1 APTT 28.5 Sodium 141 Potassium 3.8 Chloride 106 Carbon Dioxide 27.0 Anion Gap 8 BUN 11 Creatinine 0.73 Estim Creat Clear Calc 121.06 Est GFR (MDRD) Af Amer 146 Est GFR (MDRD) Non-Af 121 BUN/Creatinine Ratio 15.1 Glucose 117 H Calcium 8.8 Magnesium Total Bilirubin 0.40 AST 20 ALT 35 Alkaline Phosphatase 110 Total Protein 7.0 Albumin 3.6 Globulin 3.4 Albumin/Globulin Ratio 1.1 Triglycerides Cholesterol LDL Cholesterol VLDL Cholesterol HDL Cholesterol TSH Free T4 06/12/18 06/12/18 06/12/18 06:35 06:35 06:35 WBC RBC Hgb Hct MCV MCH MCHC RDW RDW Differential Plt Count MPV Immature Gran % (Auto) Neut % (Auto) Lymph % (Auto) [place] % (Auto) Eos % (Auto) Baso % (Auto) Absolute Neuts (auto) Absolute Lymphs (auto) Total Counted PT INR APTT Sodium Potassium Chloride Carbon Dioxide Anion Gap BUN Creatinine Estim Creat Clear Calc Est GFR (MDRD) Af Amer Est GFR (MDRD) Non-Af BUN/Creatinine Ratio Glucose Calcium Magnesium 2.2 Total Bilirubin AST ALT Alkaline Phosphatase Total Protein Albumin Globulin Albumin/Globulin Ratio Triglycerides 67 Cholesterol 94 LDL Cholesterol 48 VLDL Cholesterol 13 HDL Cholesterol 33 L TSH < 0.01 L Free T4 3.[address] and cta head and neck reviewed: right mca distribution subacute infarct, moderate size. Left ICA stenosis by my review at the bulb appears to be sub- critical mri reviewed, subacute right mca infarct, appearance consistent with thromboembolic phenomenon Current Home Med List Medication Instructions Recorded Confirmed Type NK 06/11/18 06/11/18 History Current Medications Acetaminophen 650 mg 06/11/18 19:26 Tylenol PO Q6H PRN PRN Mild Pain (1-3)/Temp > 100.7 F Aspirin 81 mg 06/12/18 08:00 06/12/18 08:03 Aspirin, Baby PO 81 mg DAILY@0800 [facility] Administration Atorvastatin Calcium 80 mg 06/11/18 22:00 06/11/18 21:30 Lipitor PO 80 mg QHS [facility] Administration Enoxaparin Sodium 40 mg 06/12/18 10:00 06/12/18 09:32 Lovenox SC 40 mg DAILY@1000 [facility] Administration Influenza Virus Vaccine Quadrival 0.5 ml 06/12/18 10:00 06/12/18 09:31 Fluarix/Fluzone IM 06/12/18 10:01 0.5 ml .ONCE ONE Administration Lisinopril 5 mg 06/12/18 10:00 06/12/18 09:32 Zestril PO 5 mg DAILY [facility] Administration Magnesium Hydroxide 30 ml 06/11/18 19:26 Milk Of Magnesia PO DAILY PRN Constipation Ondansetron HCl 4 mg 06/11/18 19:26 Zofran IV Q8H PRN PRN NAUSEA Sodium Chloride 5 - 30 ml 06/11/18 20:10 IV UD PRN SALINE FLUSH Assessment/Plan All Active Problems (Last Reviewed 06/11/18 @ 17:13 by RONNY Harper) CVA (cerebral vascular accident) (Acute) acute/subacute right mca infarct, severe left ica stenosis which appears asymptomatic. surface echo ok with bubble study agree with asa, statin, bp control needs darrel continue tele await opionion of dr hurt pt/ot/sp likely doesnt need rehab at this point dc tob
--- NOTE | 2018-06-12 11:05 | CASEMGMT ---
RN CM Assessment PCP: none. Pt lives in [place], [place] Specialists: none Pharmacy:[facility] Prescription coverage: No Living Arrangements: see PT/OT notes DME:none Social Work Consult: Yes, self pay status and pt may need Inpt Rehab. DC PLAN: undetermined. Pending neurology consultation and PT/OT recommendations re: Inpt Rehab. Pt is self pay, would likely need to complete KEE application. Justine HINESN RN ACM
[2018-06-12] MEDS: 0.9% NaCl Peripheral Flush Adult/Peds IV (15:31)
[2018-06-12] MEDS: Atorvastatin Calcium 80 MG Tablet PO (22:05)
[2018-06-13] VITALS (12 sets, daily range): BP systolic 124–155; BP diastolic 65–89; PULSE 54–66; RESP 16–18; TEMP 36.7–37.2; O2SAT 96–97; BMI 24.9
--- NOTE | 2018-06-13 08:31 | PN_ITS ---
Patient Problems: Active and Suspected Problems (Last Reviewed 06/11/18 @ 17:13 by RONNY Harper) CVA (cerebral vascular accident) (Acute) Subjective: Patient with no acute events overnight per self and per nursing report. Patient states very mild improvement to the ataxia and left upper extremity weakness otherwise feels similar to prior. Reviewed current plan of care which includes [facility]REE on Thursday in addition to evaluation per vascular surgery for carotid stenosis to which she is amenable. Noted that neurology felt he could be appropriate for outpatient therapies and patient was amenable. Patient denies fevers, chills, nausea, emesis, abdominal pain, chest pain or dyspnea. Objective: Physical Examination: General: awake, alert, oriented x 3 and cooperative, seated upright in bed in no apparent distress. Skin: normal color, turgor, no icterus, cyanosis. HEENT: AT/NC, EOMI, PERRLA, MMM. Lungs: Diminished breath sounds bilateral bases, moderate effort, no rales, ronchi or wheezing. Heart: Regular rate and rhythm; no gallop, rub audible. Abdomen: soft, NTTP, ND, normal BS. Extremities: no cyanosis, clubbing, or edema. Neurological: patient awake, alert, oriented x 3; cognitive function intact; pupils equally reactive to light and accomodation; cranial nerves II-XII grossly normal, moving all 4 extremities, no focal deficits, mildly improved ataxia left upper extremity, strength 3-45, upgoing Babinski left, heel to gerardo and finger to nose appropriate right side, improved LUE FTN, appropriate L HTS, sensation intact. Psychiatric: affect appears normal, no acute evidence of depressive or anxiety feelings. Vitals/I&O's: Vital Signs Temp Pulse Resp BP Pulse Ox 98.9 F 65 18 155/89 H 97 06/13/18 07:29 06/13/18 08:00 06/13/18 07:29 06/13/18 07:29 06/13/18 07:29 Oxygen Delivery Method Room Air Weight: 168 lb 13.985 oz Body Mass Index (BMI) 24.9 Intake and Output for Last 24 Hours 06/11/18 06/12/18 06/13/18 23:59 23:59 23:59 Intake Total 240 / 240 1330 / 1330 240 / 240 Output Total 2 / 2 Balance 240 / 240 1328 / 1328 240 / 240 Laboratory Results 06/12/18 06:35: Magnesium 2.2, TSH < 0.01 L 06/12/18 06:35: Free T4 3.52 H Current Medications Acetaminophen (Tylenol) 650 mg PO Q6H PRN PRN PRN Reason: Mild Pain (1-3)/Temp > 100.7 F Aspirin (Aspirin, Baby) 81 mg PO DAILY@0800 [facility] Last Admin: 06/12/18 08:03 Dose: 81 mg Atorvastatin Calcium (Lipitor) 80 mg PO QHS [facility] Last Admin: 06/12/18 22:05 Dose: 80 mg Enoxaparin Sodium (Lovenox) 40 mg SC DAILY@1000 [facility] Last Admin: 06/12/18 09:32 Dose: 40 mg Sodium Chloride () 1,000 mls @ 100 mls/hr IV .Q10H [facility] Lisinopril (Zestril) 5 mg PO DAILY [facility] Last Admin: 06/12/18 09:32 Dose: 5 mg Magnesium Hydroxide (Milk Of Magnesia) 30 ml PO DAILY PRN PRN Reason: Constipation Ondansetron HCl (Zofran) 4 mg IV Q8H PRN PRN PRN Reason: NAUSEA Sodium Chloride () 5 - 30 ml IV UD PRN PRN Reason: SALINE FLUSH Last Admin: 06/12/18 15:31 Dose: 10 ml Medical Necessity - Tobacco Use Smoking Status: Current every day smoker Tobacco Use: Cigarettes Assessment/Plan All Active Problems (Last Reviewed 06/11/18 @ 17:13 by RONNY Harper) CVA (cerebral vascular accident) (Acute) The patient is a 52 y/o M w/ PMHx: Tobacco use who presents to the [facility] ED on 06/11/18 with history of ongoing L sided upper extremity weakness and ataxia. (1) L sided upper extremity weakness and ataxia secondary to Subacute R MCA Territory CVA: In the ED work-up included CBC w/ WBC 4.2, Hgb 16.1, Plts 134 without marked L shift, unremarkable coags, CMP w/ glucose 117 otherwise not marked, CT Head w/ chronic involutional changes, cortical and subcortical decreased attenuation lesions in the right parietal lobe, right frontal lobe consistent with a subacute ischemic lesion in the right middle cerebral artery territory, CTA Neck w/ minimally ectatic aortic arch 3.3 cm, patent bovine cervical arch branching, normal subclavian arteries, calcified plaque right carotid bulb and proximal ICA with less than 50% stenosis, calcified plaque left carotid bulb and proximal ICA, least dimension proximal ICA proximal 1.8 mm widening thereafter to be caliber of 5.3 mm with approximate 70% stenosis, patent thereafter into the skull base, no carotid dissection, normal bilateral cervical vertebral arteries, CXR w/ chronic changes with no acute process. ED vitals with initial BP 158/87. Admitted to PCU, MRI Brain w/ findings consistent with right parieto-occipital watershed infarct with scattered areas of enhancement consistent with components of subacute infarct, additional scattered areas of right parietal/posterior frontal lobe and rolandic cortex acute to subacute infarct with no acute evidence of intracranial bleed, CT Head w/ normal [place] without demonstrated aneurysm or significant stenosis, ECHO w/ normal LV size, mild concentric LVH, normal LV systolic function, EF 55%, no evidence for diastolic dysfunction, PT/OT/Speech/Nutrition evaluation per protocol. Given timeline appropriate to initial HTN regimen as sxs x 1 week, added low dose ACEI but if preference for permissive will defer to Neurology, maintain on asa, high dose statin w/ AM FLP w/ TG 67, TChol 94, LDL 48, VLDL 13, HDL 33, fall precautions. Neurology consulted, recommendations for asa, high dose statin, BP regimen, planned Surgery evaluation w/ Dr. Alves on 06/14/18 which he is aware for evaluation of carotid stenosis, planned [facility] on 06/14/18 which Cardiology is aware. Neurology felt does not need acute rehabilitation. (2) BL Carotid Stenosis: CTA Neck w/ minimally ectatic aortic arch 3.3 cm, patent bovine cervical arch branching, normal subclavian arteries, calcified plaque right carotid bulb and proximal ICA with less than 50% stenosis, calcified plaque left carotid bulb and proximal ICA, least dimension proximal ICA proximal 1.8 mm widening thereafter to be caliber of 5.3 mm with approximate 70% stenosis, patent thereafter into the skull base, no carotid dissection, normal bilateral cervical vertebral arteries. Dr. Alves will evaluate patient for L CEA on 06/14/18, discussed case with him. (3) Tobacco Abuse: Encouraged cessation, inpatient consultation per RT, NR if desired. (4) Primary Hyperthyroidism: TSH low, FT4 mildly elevated, consistent w/ primary hyperthyroidism, will need RAIU set-up as outpatient. (5) DVT Prophylaxis: SCDs, lovenox. (6) Financial: Patient does not have insurance, self-pay, will confer with CM Thursday to assure that all assistive measures, ie medicaid being filled out. Code Visit Inpatient E&M: 96695 Subs Hosp L2
[2018-06-13] MEDS: Aspirin 81 MG TAB.CHEW PO (09:35)
[2018-06-13] MEDS: Enoxaparin 40 MG/0.4 ML Syringe SC (09:35)
[2018-06-13] MEDS: Lisinopril 5 MG Tablet PO ×2 (09:36→13:55)
[2018-06-13] MEDS: Atorvastatin Calcium 80 MG Tablet PO (21:15)
[2018-06-14] VITALS (7 sets, daily range): BP systolic 112–140; BP diastolic 63–77; PULSE 52–67; RESP 16–18; TEMP 36.7–36.9; O2SAT 96–97; BMI 24.9
--- NOTE | 2018-06-14 05:53 | PCM.CONS.GEN ---
Problem List (1) CVA (cerebral vascular accident) Status: Acute Qualifiers: Laterality of affected vessel: right (2) Carotid stenosis, bilateral Status: Acute Reason for Consult Date of Consultation: 06/14/18 History of Present Illness: The patient is a 52 year old M who I have been asked to see because of right hemispheric CVA and bilateral carotid occlusive disease worse on the left than on the right. Plan I see the patient by Dr. Jayda March no written copy my consult will be present in the chart. 52-year-old gentleman. He noted posterior neck pain. It resolved. 2 days later he noted weakness of the left hand and upper extremity. Imaging is as follows. Findings are consistent with subacute ischemic lesion in the right middle cerebral artery territory. He has less than 50% stenosis on the right and 70% stenosis on the left based upon CTA. The patient notes that his left upper extremity symptoms are improving. Claims that he is not back to normal. Claims that he has never had a previous similar episode. He denies positional vertigo or orthostatic vertigo. He denies any chest pain palpitations. He is able to climb a flight of stairs. He has no calf claudication with walking. He denies history of hypertension or hypercholesterolemia. He has had a lifelong history of 1/2 pack/day cigarette smoking. He also notes that his father incurred a stroke approximately at age 55. The patient is rather vague about additional findings regarding this Clinical Impression(s) from Imaging Studies Brain CT 06/11/18 15:46 IMPRESSION: Chronic involutional changes of the brain. There is a cortical and subcortical decrease attenuation lesion in the right parietal lobe and right frontal lobe consistent with a subacute ischemic lesion in the right middle cerebral artery territory. Electronically Signed: Marie Caldera MD at 16:18 EDT Tel , Service support , Chest X-Ray 06/11/18 15:46 IMPRESSION: Degenerative changes, as described above. No demonstrated acute cardiopulmonary process. Electronically Signed: Marie Caldera MD at 16:25 EDT Tel , Service support , Head CTA 06/11/18 16:23 IMPRESSION: Normal ak chin of [place] without a demonstrated aneurysm or hemodynamically significant stenosis. Electronically Signed: Reed Mathis, at 17:11 EDT Tel , Service support , STUDY: CTA NECK WITH CONTRAST REASON FOR EXAM: Male, 52 years old. Cerebrovascular accident RADIATION DOSAGE (If Supplied By Facility): DLP = ( 8 ) mGycm TECHNIQUE: CT angiography with multi-detector data acquisition was performed from the aortic arch to the skull base following intravenous administration of 100ML ml of Isovue 370 contrast. MIP images were reconstructed from the axial data set. Post-processing of the angiographic images was performed, with multiplanar reformation and 3D reconstruction. Individualized dose optimization techniques were used for this CT. COMPARISON: None. FINDINGS: Minimally ectatic aortic arch 3.3 cm. Patent bovine cervical arch branching. Normal subclavian arteries. Calcified plaque of the right carotid bulb and proximal ICA with less than 50% stenosis. Calcified plaque of the left carotid bulb and proximal ICA. Least dimension of the proximal ICA approximately 1.8 mm widening thereafter to a caliber of 5.3 mm. Approximate 70% stenosis. Patent thereafter into the skull base. Next line bilaterally no carotid dissection. Normal bilateral cervical vertebral arteries On survey of the cervical soft tissues there is asymmetric mild enlargement of the right tonsillar soft tissues as compared to the left and direct visualization is recommended for further assessment. The appearance is nonspecific. There is shotty lymphadenopathy of the cervical chains bilaterally, not pathologically enlarged. There is moderate symmetric enlargement of the right thyroid gland compared to the left. IMPRESSION:. Proximal left ICA stenosis in the range of 70%. Proximal right ICA stenosis less than 50%. No dissection. Normal cervical vertebral arteries. Asymmetry in the thickness of tonsillar soft tissues right greater than left require further clinical correlation. Right greater than left thyroid enlargement. Stenosis (if any)is quantified according to The [place] Symptomatic Carotid Endarterectomy Trial (NASCET). Dena H, et al. Quantitative Vascular Measurements in Arterial Occlusive Disease. [employer] 2005;25:3120-0077. Electronically Signed: Reed Mathis, at 17:17 EDT Tel , Service support , ADDENDUM: 06/11/18 1834 IMPRESSION: Normal ak chin of [place] without a demonstrated aneurysm or hemodynamically significant stenosis. Electronically Signed: Reed Mathis, at 17:11 EDT Tel , Service support , STUDY: CTA NECK WITH CONTRAST REASON FOR EXAM: Male, 52 years old. Cerebrovascular accident RADIATION DOSAGE (If Supplied By Facility): DLP = ( 8 ) mGycm TECHNIQUE: CT angiography with multi-detector data acquisition was performed from the aortic arch to the skull base following intravenous administration of 100ML ml of Isovue 370 contrast. MIP images were reconstructed from the axial data set. Post-processing of the angiographic images was performed, with multiplanar reformation and 3D reconstruction. Individualized dose optimization techniques were used for this CT. COMPARISON: None. FINDINGS: Minimally ectatic aortic arch 3.3 cm. Patent bovine cervical arch branching. Normal subclavian arteries. Calcified plaque of the right carotid bulb and proximal ICA with less than 50% stenosis. Calcified plaque of the left carotid bulb and proximal ICA. Least dimension of the proximal ICA approximately 1.8 mm widening thereafter to a caliber of 5.3 mm. Approximate 70% stenosis. Patent thereafter into the skull base. Next line bilaterally no carotid dissection. Normal bilateral cervical vertebral arteries On survey of the cervical soft tissues there is asymmetric mild enlargement of the right tonsillar soft tissues as compared to the left and direct visualization is recommended for further assessment. The appearance is nonspecific. There is shotty lymphadenopathy of the cervical chains bilaterally, not pathologically enlarged. There is moderate symmetric enlargement of the right thyroid gland compared to the left. IMPRESSION:. Proximal left ICA stenosis in the range of 70%. Proximal right ICA stenosis less than 50%. No dissection. Normal cervical vertebral arteries. Asymmetry in the thickness of tonsillar soft tissues right greater than left require further clinical correlation. Right greater than left thyroid enlargement. Stenosis (if any)is quantified according to The [place] Symptomatic Carotid Endarterectomy Trial (NASCET). [employer] H, et al. Quantitative Vascular Measurements in Arterial Occlusive Disease. [employer] 2005;25:3685-0729. Electronically Signed: Reed Barbosaney, at 17:17 EDT Tel , Service support , ADDENDUM: 06/11/18 1834 Neck CTA 06/11/18 16:23 IMPRESSION: Normal ak chin of [place] without a demonstrated aneurysm or hemodynamically significant stenosis. Electronically Signed: Reed Mathis, at 17:11 EDT Tel , Service support , STUDY: CTA NECK WITH CONTRAST REASON FOR EXAM: Male, 52 years old. Cerebrovascular accident RADIATION DOSAGE (If Supplied By Facility): DLP = ( 8 ) mGycm TECHNIQUE: CT angiography with multi-detector data acquisition was performed from the aortic arch to the skull base following intravenous administration of 100ML ml of Isovue 370 contrast. MIP images were reconstructed from the axial data set. Post-processing of the angiographic images was performed, with multiplanar reformation and 3D reconstruction. Individualized dose optimization techniques were used for this CT. COMPARISON: None. FINDINGS: Minimally ectatic aortic arch 3.3 cm. Patent bovine cervical arch branching. Normal subclavian arteries. Calcified plaque of the right carotid bulb and proximal ICA with less than 50% stenosis. Calcified plaque of the left carotid bulb and proximal ICA. Least dimension of the proximal ICA approximately 1.8 mm widening thereafter to a caliber of 5.3 mm. Approximate 70% stenosis. Patent thereafter into the skull base. Next line bilaterally no carotid dissection. Normal bilateral cervical vertebral arteries On survey of the cervical soft tissues there is asymmetric mild enlargement of the right tonsillar soft tissues as compared to the left and direct visualization is recommended for further assessment. The appearance is nonspecific. There is shotty lymphadenopathy of the cervical chains bilaterally, not pathologically enlarged. There is moderate symmetric enlargement of the right thyroid gland compared to the left. IMPRESSION:. Proximal left ICA stenosis in the range of 70%. Proximal right ICA stenosis less than 50%. No dissection. Normal cervical vertebral arteries. Asymmetry in the thickness of tonsillar soft tissues right greater than left require further clinical correlation. Right greater than left thyroid enlargement. Stenosis (if any)is quantified according to The [place] Symptomatic Carotid Endarterectomy Trial (NASCET). Dena H, et al. Quantitative Vascular Measurements in Arterial Occlusive Disease. [employer] 2005;25:7102-7180. Electronically Signed: Reed Mathis, at 17:17 EDT Tel , Service support , ADDENDUM: 06/11/181834 ADDENDUM: 06/11/181834 IMPRESSION: Normal ak chin of [place] without a demonstrated aneurysm or hemodynamically significant stenosis. Electronically Signed: Reed Mathis, at 17:11 EDT Tel , Service support , STUDY: CTA NECK WITH CONTRAST REASON FOR EXAM: Male, 52 years old. Cerebrovascular accident RADIATION DOSAGE (If Supplied By Facility): DLP = ( 8 ) mGycm TECHNIQUE: CT angiography with multi-detector data acquisition was performed from the aortic arch to the skull base following intravenous administration of 100ML ml of Isovue 370 contrast. MIP images were reconstructed from the axial data set. Post-processing of the angiographic images was performed, with multiplanar reformation and 3D reconstruction. Individualized dose optimization techniques were used for this CT. COMPARISON: None. FINDINGS: Minimally ectatic aortic arch 3.3 cm. Patent bovine cervical arch branching. Normal subclavian arteries. Calcified plaque of the right carotid bulb and proximal ICA with less than 50% stenosis. Calcified plaque of the left carotid bulb and proximal ICA. Least dimension of the proximal ICA approximately 1.8 mm widening thereafter to a caliber of 5.3 mm. Approximate 70% stenosis. Patent thereafter into the skull base. Next line bilaterally no carotid dissection. Normal bilateral cervical vertebral arteries On survey of the cervical soft tissues there is asymmetric mild enlargement of the right tonsillar soft tissues as compared to the left and direct visualization is recommended for further assessment. The appearance is nonspecific. There is shotty lymphadenopathy of the cervical chains bilaterally, not pathologically enlarged. There is moderate symmetric enlargement of the right thyroid gland compared to the left. IMPRESSION:. Proximal left ICA stenosis in the range of 70%. Proximal right ICA stenosis less than 50%. No dissection. Normal cervical vertebral arteries. Asymmetry in the thickness of tonsillar soft tissues right greater than left require further clinical correlation. Right greater than left thyroid enlargement. Stenosis (if any)is quantified according to The [place] Symptomatic Carotid Endarterectomy Trial (NASCET). Dena H, et al. Quantitative Vascular Measurements in Arterial Occlusive Disease. [employer] 2005;25:2774-1323. Electronically Signed: Reed Barbosaney, at 17:17 EDT Tel , Service support , Past Medical History Allergies No Known Allergies Allergy (Unverified 06/11/18 15:26) Home Medications: Ambulatory Orders Medication Instructions Recorded NK 06/11/18 Surgical History: no surgical history Lives: Alone Smoking Status: Current every day smoker Tobacco Use: Cigarettes Alcohol: Rare Drugs: None - *Family History Maternal History Items: - - No history of stroke Review of Systems Constitutional: Denies: Anorexia Eyes: Denies: Blurred vision HEENT: Reports: - - Positive for episode of right posterior neck pain. Denies: Difficulty Hearing Cardiovascular: Denies: Chest Pain, Claudication, Chest Pressure, Chest Tightness, Palpitations, Syncope Respiratory: Reports: Cough Gastrointestinal: Denies: Abdominal Pain Musculoskeletal: Reports: - - Positive left hand left upper extremity weakness. Denies: Arm Pain Neurological: Reports: Focal weakness. Denies: Change in Speech, Slurred speech Psychiatric: Denies: Anxiety Endocrine: Denies: Change in Body Habitus Patient Problems: Active and Suspected Problems (Last Reviewed 06/11/18 @ 17:13 by RONNY Harper) CVA (cerebral vascular accident) (Acute) Carotid stenosis, bilateral (Acute) - Physical Exam General: Alert, Oriented x3, Cooperative, No apparent distress HEENT: Atraumatic Oral: Moist Mucosa Neck: Supple, No JVD, Negative Carotid Bruits, No Nodes Lungs: Clear to auscultation, Normal air movement Cardiovascular: Regular rate, Regular Rhythm, - - Bilateral carotids are 3+. No bruits. Bilateral brachial and radial and femoral and popliteal and DP and PT are 3+ Abdomen: Bowel Sounds Present, Soft, Non Tender, - - Not pulsatile, not expansile, no bruits Extremities: No clubbing Lymphatic: No Cervical, Supraclavicular, or Inguinal Adenopathy Vital Signs Temp Pulse Resp BP Pulse Ox 98.2 F 55 L 16 139/77 H 97 06/14/18 05:10 06/14/18 05:10 06/14/18 05:10 06/14/18 05:10 06/14/18 05:10 Oxygen Delivery Method Room Air Weight: 168 lb 13.985 oz Body Mass Index (BMI) 24.9 Intake and Output for Last 24 Hours 06/12/18 06/13/18 06/14/18 23:59 23:59 23:59 Intake Total 1330 / 1330 1305 / 1305 Output Total 2 / 2 Balance 1328 / 1328 1305 / 1305 Assessment/Plan All Active Problems (Last Reviewed 06/11/18 @ 17:13 by RONNY Harper) CVA (cerebral vascular accident) (Acute) Carotid stenosis, bilateral (Acute) Right hemispheric CVA with insignificant calcific right carotid occlusive disease. Estimated 70% calcific occlusive disease left internal carotid based upon CTA. I have reviewed the imaging and the degree of calcification bilaterally makes interpretation challenging. I am recommending and we will proceed with carotid duplex imaging for further definition. The patient is also pursuing a [facility] today in search for possible etiology of the right hemispheric stroke. It is not likely that it is secondary to his carotid disease on the right. The disease on his left currently is asymptomatic. I have discussed with him recommendations for medical maximization of his care. I like others have stressed him the importance of his ceasing his tobacco use. We will obtain a carotid duplex and then further recommendations as appropriate. I appreciate the opportunity of assisting with his surgical care. Edmar Alves M.D., F.A.C.S.
--- NOTE | 2018-06-14 05:57 | CON.PCM_ITS ---
Problem List (1) CVA (cerebral vascular accident) Status: Acute Qualifiers: Laterality of affected vessel: right (2) Carotid stenosis, bilateral Status: Acute Reason for Consult Date of Consultation: 06/14/18 History of Present Illness: The patient is a 52 year old M who I have been asked to see because of right hemispheric CVA and bilateral carotid occlusive disease worse on the left than on the right. Plan I see the patient by Dr. Jayda March no written copy my consult will be present in the chart. 52-year-old gentleman. He noted posterior neck pain. It resolved. 2 days later he noted weakness of the left hand and upper extremity. Imaging is as follows. Findings are consistent with subacute ischemic lesion in the right middle cerebral artery territory. He has less than 50% stenosis on the right and 70% stenosis on the left based upon CTA. The patient notes that his left upper extremity symptoms are improving. Claims that he is not back to normal. Claims that he has never had a previous similar episode. He denies positional vertigo or orthostatic vertigo. He denies any chest pain palpitations. He is able to climb a flight of stairs. He has no calf claudication with walking. He denies history of hypertension or hypercholesterolemia. He has had a lifelong history of 1/2 pack/day cigarette smoking. He also notes that his father incurred a stroke approximately at age 55. The patient is rather vague about additional findings regarding this Clinical Impression(s) from Imaging Studies Brain CT 06/11/18 15:46 IMPRESSION: Chronic involutional changes of the brain. There is a cortical and subcortical decrease attenuation lesion in the right parietal lobe and right frontal lobe consistent with a subacute ischemic lesion in the right middle cerebral artery territory. Electronically Signed: Marie Caldera MD at 16:18 EDT Tel , Service support , Chest X-Ray 06/11/18 15:46 IMPRESSION: Degenerative changes, as described above. No demonstrated acute cardiopulmonary process. Electronically Signed: Marie Caldera MD at 16:25 EDT Tel , Service support , Head CTA 06/11/18 16:23 IMPRESSION: Normal [place] without a demonstrated aneurysm or hemodynamically significant stenosis. Electronically Signed: Reed Mathis, at 17:11 EDT Tel , Service support , STUDY: CTA NECK WITH CONTRAST REASON FOR EXAM: Male, 52 years old. Cerebrovascular accident RADIATION DOSAGE (If Supplied By Facility): DLP = ( 8 ) mGycm TECHNIQUE: CT angiography with multi-detector data acquisition was performed from the aortic arch to the skull base following intravenous administration of 100ML ml of Isovue 370 contrast. MIP images were reconstructed from the axial data set. Post-processing of the angiographic images was performed, with multiplanar reformation and 3D reconstruction. Individualized dose optimization techniques were used for this CT. COMPARISON: None. FINDINGS: Minimally ectatic aortic arch 3.3 cm. Patent bovine cervical arch branching. Normal subclavian arteries. Calcified plaque of the right carotid bulb and proximal ICA with less than 50% stenosis. Calcified plaque of the left carotid bulb and proximal ICA. Least dimension of the proximal ICA approximately 1.8 mm widening thereafter to a caliber of 5.3 mm. Approximate 70% stenosis. Patent thereafter into the skull base. Next line bilaterally no carotid dissection. Normal bilateral cervical vertebral arteries On survey of the cervical soft tissues there is asymmetric mild enlargement of the right tonsillar soft tissues as compared to the left and direct visualization is recommended for further assessment. The appearance is nonspecific. There is shotty lymphadenopathy of the cervical chains bilaterally, not pathologically enlarged. There is moderate symmetric enlargement of the right thyroid gland compared to the left. IMPRESSION:. Proximal left ICA stenosis in the range of 70%. Proximal right ICA stenosis less than 50%. No dissection. Normal cervical vertebral arteries. Asymmetry in the thickness of tonsillar soft tissues right greater than left require further clinical correlation. Right greater than left thyroid enlargement. Stenosis (if any)is quantified according to The [place] Symptomatic Carotid Endarterectomy Trial (NASCET). Dena H, et al. Quantitative Vascular Measurements in Arterial Occlusive Disease. Radio[employer] 2005;25:1451-0065. Electronically Signed: Reed Mathis, at 17:17 EDT Tel , Service support , ADDENDUM: 06/11/18 1834 IMPRESSION: Normal [place] without a demonstrated aneurysm or hemodynamically significant stenosis. Electronically Signed: Reed Mathis, at 17:11 EDT Tel , Service support , STUDY: CTA NECK WITH CONTRAST REASON FOR EXAM: Male, 52 years old. Cerebrovascular accident RADIATION DOSAGE (If Supplied By Facility): DLP = ( 8 ) mGycm TECHNIQUE: CT angiography with multi-detector data acquisition was performed from the aortic arch to the skull base following intravenous administration of 100ML ml of Isovue 370 contrast. MIP images were reconstructed from the axial data set. Post-processing of the angiographic images was performed, with multiplanar reformation and 3D reconstruction. Individualized dose optimization techniques were used for this CT. COMPARISON: None. FINDINGS: Minimally ectatic aortic arch 3.3 cm. Patent bovine cervical arch branching. Normal subclavian arteries. Calcified plaque of the right carotid bulb and proximal ICA with less than 50% stenosis. Calcified plaque of the left carotid bulb and proximal ICA. Least dimension of the proximal ICA approximately 1.8 mm widening thereafter to a caliber of 5.3 mm. Approximate 70% stenosis. Patent thereafter into the skull base. Next line bilaterally no carotid dissection. Normal bilateral cervical vertebral arteries On survey of the cervical soft tissues there is asymmetric mild enlargement of the right tonsillar soft tissues as compared to the left and direct visualization is recommended for further assessment. The appearance is nonspecific. There is shotty lymphadenopathy of the cervical chains bilaterally, not pathologically enlarged. There is moderate symmetric enlargement of the right thyroid gland compared to the left. IMPRESSION:. Proximal left ICA stenosis in the range of 70%. Proximal right ICA stenosis less than 50%. No dissection. Normal cervical vertebral arteries. Asymmetry in the thickness of tonsillar soft tissues right greater than left require further clinical correlation. Right greater than left thyroid enlargement. Stenosis (if any)is quantified according to The [place] Symptomatic Carotid Endarterectomy Trial (NASCET). Network Control Operators Supervisor H, et al. Quantitative Vascular Measurements in Arterial Occlusive Disease. Radio[employer] 2005;25:2213-5504. Electronically Signed: Reed Barbosaney, at 17:17 EDT Tel , Service support , ADDENDUM: 06/11/18 1834 Neck CTA 06/11/18 16:23 IMPRESSION: Normal [place] without a demonstrated aneurysm or hemodynamically significant stenosis. Electronically Signed: Reed Mathis, at 17:11 EDT Tel , Service support , STUDY: CTA NECK WITH CONTRAST REASON FOR EXAM: Male, 52 years old. Cerebrovascular accident RADIATION DOSAGE (If Supplied By Facility): DLP = ( 8 ) mGycm TECHNIQUE: CT angiography with multi-detector data acquisition was performed from the aortic arch to the skull base following intravenous administration of 100ML ml of Isovue 370 contrast. MIP images were reconstructed from the axial data set. Post-processing of the angiographic images was performed, with multiplanar reformation and 3D reconstruction. Individualized dose optimization techniques were used for this CT. COMPARISON: None. FINDINGS: Minimally ectatic aortic arch 3.3 cm. Patent bovine cervical arch branching. Normal subclavian arteries. Calcified plaque of the right carotid bulb and proximal ICA with less than 50% stenosis. Calcified plaque of the left carotid bulb and proximal ICA. Least dimension of the proximal ICA approximately 1.8 mm widening thereafter to a caliber of 5.3 mm. Approximate 70% stenosis. Patent thereafter into the skull base. Next line bilaterally no carotid dissection. Normal bilateral cervical vertebral arteries On survey of the cervical soft tissues there is asymmetric mild enlargement of the right tonsillar soft tissues as compared to the left and direct visualization is recommended for further assessment. The appearance is nonspecific. There is shotty lymphadenopathy of the cervical chains bilaterally, not pathologically enlarged. There is moderate symmetric enlargement of the right thyroid gland compared to the left. IMPRESSION:. Proximal left ICA stenosis in the range of 70%. Proximal right ICA stenosis less than 50%. No dissection. Normal cervical vertebral arteries. Asymmetry in the thickness of tonsillar soft tissues right greater than left require further clinical correlation. Right greater than left thyroid enlargement. Stenosis (if any)is quantified according to The [place] Symptomatic Carotid Endarterectomy Trial (NASCET). Dena H, et al. Quantitative Vascular Measurements in Arterial Occlusive Disease. RadioGraphics 2005;25:5143-1041. Electronically Signed: Reed Mathis, at 17:17 EDT Tel , Service support , ADDENDUM: 06/11/181834 ADDENDUM: 06/11/181834 IMPRESSION: Normal [place] without a demonstrated aneurysm or hemodynamically significant stenosis. Electronically Signed: Reed Mathis, at 17:11 EDT Tel , Service support , STUDY: CTA NECK WITH CONTRAST REASON FOR EXAM: Male, 52 years old. Cerebrovascular accident RADIATION DOSAGE (If Supplied By Facility): DLP = ( 8 ) mGycm TECHNIQUE: CT angiography with multi-detector data acquisition was performed from the aortic arch to the skull base following intravenous administration of 100ML ml of Isovue 370 contrast. MIP images were reconstructed from the axial data set. Post-processing of the angiographic images was performed, with multiplanar reformation and 3D reconstruction. Individualized dose optimization techniques were used for this CT. COMPARISON: None. FINDINGS: Minimally ectatic aortic arch 3.3 cm. Patent bovine cervical arch branching. Normal subclavian arteries. Calcified plaque of the right carotid bulb and proximal ICA with less than 50% stenosis. Calcified plaque of the left carotid bulb and proximal ICA. Least dimension of the proximal ICA approximately 1.8 mm widening thereafter to a caliber of 5.3 mm. Approximate 70% stenosis. Patent thereafter into the skull base. Next line bilaterally no carotid dissection. Normal bilateral cervical vertebral arteries On survey of the cervical soft tissues there is asymmetric mild enlargement of the right tonsillar soft tissues as compared to the left and direct visualization is recommended for further assessment. The appearance is nonspecific. There is shotty lymphadenopathy of the cervical chains bilaterally, not pathologically enlarged. There is moderate symmetric enlargement of the right thyroid gland compared to the left. IMPRESSION:. Proximal left ICA stenosis in the range of 70%. Proximal right ICA stenosis less than 50%. No dissection. Normal cervical vertebral arteries. Asymmetry in the thickness of tonsillar soft tissues right greater than left require further clinical correlation. Right greater than left thyroid enlargement. Stenosis (if any)is quantified according to The [place] Symptomatic Carotid Endarterectomy Trial (NASCET). Dena H, et al. Quantitative Vascular Measurements in Arterial Occlusive Disease. RadioGraphics 2005;25:9862-9832. Electronically Signed: Reed Barbosaney, at 17:17 EDT Tel , Service support , Past Medical History Allergies No Known Allergies Allergy (Unverified 06/11/18 15:26) Home Medications: Ambulatory Orders Medication Instructions Recorded NK 06/11/18 Surgical History: no surgical history Lives: Alone Smoking Status: Current every day smoker Tobacco Use: Cigarettes Alcohol: Rare Drugs: None - *Family History Maternal History Items: - - No history of stroke Review of Systems Constitutional: Denies: Anorexia Eyes: Denies: Blurred vision HEENT: Reports: - - Positive for episode of right posterior neck pain. Denies: Difficulty Hearing Cardiovascular: Denies: Chest Pain, Claudication, Chest Pressure, Chest Tightness, Palpitations, Syncope Respiratory: Reports: Cough Gastrointestinal: Denies: Abdominal Pain Musculoskeletal: Reports: - - Positive left hand left upper extremity weakness. Denies: Arm Pain Neurological: Reports: Focal weakness. Denies: Change in Speech, Slurred speech Psychiatric: Denies: Anxiety Endocrine: Denies: Change in Body Habitus Patient Problems: Active and Suspected Problems (Last Reviewed 06/11/18 @ 17:13 by RONNY Harper) CVA (cerebral vascular accident) (Acute) Carotid stenosis, bilateral (Acute) - Physical Exam General: Alert, Oriented x3, Cooperative, No apparent distress HEENT: Atraumatic Oral: Moist Mucosa Neck: Supple, No JVD, Negative Carotid Bruits, No Nodes Lungs: Clear to auscultation, Normal air movement Cardiovascular: Regular rate, Regular Rhythm, - - Bilateral carotids are 3+. No bruits. Bilateral brachial and radial and femoral and popliteal and DP and PT are 3+ Abdomen: Bowel Sounds Present, Soft, Non Tender, - - Not pulsatile, not expansile, no bruits Extremities: No clubbing Lymphatic: No Cervical, Supraclavicular, or Inguinal Adenopathy Vital Signs Temp Pulse Resp BP Pulse Ox 98.2 F 55 L 16 139/77 H 97 06/14/18 05:10 06/14/18 05:10 06/14/18 05:10 06/14/18 05:10 06/14/18 05:10 Oxygen Delivery Method Room Air Weight: 168 lb 13.985 oz Body Mass Index (BMI) 24.9 Intake and Output for Last 24 Hours 06/12/18 06/13/18 06/14/18 23:59 23:59 23:59 Intake Total 1330 / 1330 1305 / 1305 Output Total 2 / 2 Balance 1328 / 1328 1305 / 1305 Assessment/Plan All Active Problems (Last Reviewed 06/11/18 @ 17:13 by RONNY Harper) CVA (cerebral vascular accident) (Acute) Carotid stenosis, bilateral (Acute) Right hemispheric CVA with insignificant calcific right carotid occlusive disease. Estimated 70% calcific occlusive disease left internal carotid based upon CTA. I have reviewed the imaging and the degree of calcification bilaterally makes interpretation challenging. I am recommending and we will proceed with carotid duplex imaging for further definition. The patient is also pursuing a [place] today in search for possible etiology of the right hemispheric stroke. It is not likely that it is secondary to his carotid disease on the right. The disease on his left currently is asymptomatic. I have discussed with him recommendations for medical maximization of his care. I like others have stressed him the importance of his ceasing his tobacco use. We will obtain a carotid duplex and then further recommendations as appropriate. I appreciate the opportunity of assisting with his surgical care. Edmar Alves M.D., F.A.C.S.
--- NOTE | 2018-06-14 06:01 | CDU_ITS ---
Reason For Study: CVA Rt. Velocities/BP Lt. Velocities/BP Prox CCA 160.0/25.9 cm/sec. Prox CCA 137.0/24.4 cm/sec. Mid CCA 104.0/22.9 cm/sec. Mid CCA 117.0/23.6 cm/sec. Dist CCA 113.0/25.2 cm/sec. Dist CCA 87.9/22.3 cm/sec. Prox ICA 93.2/18.2 cm/sec. Prox ICA 240.0/66.8 cm/sec. Mid ICA 103.0/35.2 cm/sec. Mid ICA 168.0/35.4 cm/sec. Dist ICA 96.2/31.7 cm/sec. Dist ICA 108.0/36.9 cm/sec. Rt. ICA/CCA = 103.0/104.0=0.99. Lt. ICA/CCA = 240.0/117.0=2.05. Prox ECA 145.0/14.9 cm/sec. Prox ECA 150.0/19.6 cm/sec. Rt. Vert. 82.1/13.5 cm/sec. Lt. Vert. 96.6/22.0 cm/sec. Right Extracranial There is homogeneous, smooth atherosclerotic plaque noted in the right internal carotid artery. The atherosclerotic plaque causes acoustic shadowing. There is homogeneous, smooth atherosclerotic plaque noted in the right external carotid artery. Antegrade flow is noted in the right vertebral artery. There is heterogeneous, irregular atherosclerotic plaque noted in the right bulb. Left Extracranial There is homogeneous, smooth atherosclerotic plaque noted in the left common carotid artery. There is homogeneous, smooth atherosclerotic plaque noted in the left internal carotid artery. The atherosclerotic plaque causes acoustic shadowing. There is intimal thickening but no significant atherosclerotic plaque noted in the left external carotid artery. Antegrade flow is noted in the left vertebral artery. Procedure Carotid Duplex [id number]. The exam was diagnostic. Exam performed portable in patient room. Interpretation Summary Calcific smooth plague with shadowing at the proximal right internal carotid with <50% stenosis. Mild disease right external carotid Extensive calcific plague with shadowing at the proximal left internal carotid with >70% stenosis. Mild disease left external carotid Patent and antegrade vertebrals bilaterally Ordering Physician: Edmar Alves Referring Physician: Matt Joyce Performed By: Josiane Flynn, SPENCER, RVT
--- NOTE | 2018-06-14 10:29 | CASEMGMT ---
SW stopped in and gave patient information on [facility]'s financial assistance program. Patient said he makes too much to qualify for Medicaid. Raissa WISE MSW
--- NOTE | 2018-06-14 11:13 | DCINST_ITS ---
- Discharge Diagnoses Current Active Problems: Current Active and Chronic Problems (Last Reviewed 06/11/18 @ 17:13 by RONNY Harper) (1) L sided upper extremity weakness and ataxia secondary to Subacute R MCA Territory CVA (2) BL Carotid Stenosis (3) Tobacco Abuse (4) Primary Hyperthyroidism (TSH low, FT4 mildly elevated, consistent w/ primary hyperthyroidism, will need RAIU set-up as outpatient) You will use the following diet at home:: Cardiac Your food should be the consistency of: Regular Your liquids should be the consistency of: Regular/Thin Discharge Activity: - - Continue outpatient therapies. May not drive until cleared per Neurology. May resume sexual activity in: No Restrictions Weight Bearing Status: Weight bearing as tolerated Call your doctor if you observe: Fever of 101 or Higher, Inability to urinate, Inability to have a bowel movement, Shortness of breath, Dizziness, Fainting spells, Chest pain, Uncontrolled pain Instructions: Effects of a Stroke on the Brain and Body, Stroke Prevention: Using Blood Thinners (Anticoagulants), Controlling Your Cholesterol, Controlling High Blood Pressure, Tips for Using Less Salt, Why Do You Smoke?, Planning to Quit Smoking, Getting Support for Quitting Smoking, Coping with Smoking Withdrawal, Staying Smoke-Free Additional Instructions: Please continue the asa and plavix therapy for 3 months per Neurology recommendation with transition following to single therapy at that time. You have been started on blood pressure medications. Please continue this regimen with possible alterations per your primary care physician to achieve improved control. Please continue your cholesterol medication. We would like you to have repeat basic metabolic panel in 1-2 weeks with your primary care physician given these new blood pressure medications. Please also have primary care assist in set-up of further evaluation of your thyroid. We will send records to your primary care physician. Allergies/Adverse Reactions: Allergies No Known Allergies Allergy (Unverified 06/11/18 15:26) Medications to take at Discharge Aspirin [Aspirin, Baby] 81 mg PO DAILY@0800 #30 tab.chew 06/14/18 Atorvastatin Calcium [Lipitor] 80 mg PO QHS #30 tab 06/14/18 Clopidogrel Bisulfate [Plavix] 75 mg PO DAILY #30 tab 06/14/18 Lisinopril/Hydrochlorothiazide [Zestoretic 06/18.5 Tablet] 1 tab PO DAILY #30 tab 06/14/18 The following prescriptions were given: Aspirin [Aspirin, Baby] 81 mg PO DAILY@0800 #30 tab.chew Atorvastatin Calcium [Lipitor] 80 mg PO QHS #30 tab Clopidogrel Bisulfate [Plavix] 75 mg PO DAILY #30 tab Lisinopril/Hydrochlorothiazide [Zestoretic 10/12.5 Tablet] 1 tab PO DAILY #30 tab Primary Care Physician: NOT,DEFINED [NON-STAFF] - Please follow up with your Primary Care Physician in: Follow-up with PCP within 3-5 days. Test Results: Test results from this visit will be discussed in further detail at your follow- up appointment, if applicable. Please Follow Up With: Tutu Feliciano MD When: Within 2-3 weeks. Please Follow Up With: Edmar Alves MD When: Follow-up in 2-4 weeks per his request. Proposed Discharge Date: 06/14/18
--- NOTE | 2018-06-14 12:18 | PHA.DC.MC ---
Pharmacy Service has performed discharge medication reconciliation and counseling for this patient. The patient's discharge medication list was reviewed for discrepancies and discrepancies were resolved. The patient was counseled on the following discharge medications and changes in medications for homegoing were reviewed: CLOPIDOGREL, ATORVASTATIN, ZESTORETIC, ASPIRIN The Reason for Use, instructions for use, and potential side effects were reviewed for all new medications. The patient's questions regarding all of their medications were answered. The patient was able to verbally demonstrate an understanding of their discharge medications.
[2018-06-14] MEDS: HYDROCHLOROTHIAZIDE 12.5 MG CAPSULE PO (12:48)
[2018-06-14] MEDS: Aspirin 81 MG TAB.CHEW PO (12:48)
[2018-06-14] MEDS: Lisinopril 10 MG Tablet PO (12:49)
[2018-06-14] MEDS: Clopidogrel Bisulfate 75 MG Tablet PO (12:49)
[2018-06-14] MEDS: 0.9% NaCl Peripheral Flush Adult/Peds IV (12:51)
--- NOTE | 2018-06-14 14:11 | PCM.PN.NEU ---
Patient Problems: Active and Suspected Problems (Last Reviewed 06/11/18 @ 17:13 by RONNY Harper) CVA (cerebral vascular accident) (Acute) Carotid stenosis, bilateral (Acute) Subjective: No Issues overnight. Patient was admitted with left arm weakness and ataxia, found to have Right ICA < 50% stenosis and Left ICA > 70% stenosis on CTA head/neck, MRI brain showed right MCA distribution embolic stroke right fronto-parietal (possibly athero-embolic) and watershed infarction in the right parieto-occipital region. - Physical Exam General: Alert HEENT: Normocephalic Neck: Supple Lungs: Normal air movement Cardiovascular: Normal S1, Normal S2 Abdomen: Bowel Sounds Present Extremities: No cyanosis Skin: No rashes Neurological: - - consious, alert, CN 2-12 grossly intact, Power 5/5 right UE/LE, 4/5 left UE, 5/5 left LE, pronator drift left UE, left UE cerebellar ataxia present, no sensory loss, gait normal, Reflexes + B/L B/S/T/K/A. NIHSS 2 at present, mRS 0 at baseline Psych/Mental Status: Normal Affect Vital Signs Temp Pulse Resp BP Pulse Ox 98.0 F 52 L 17 112/63 97 06/14/18 12:45 06/14/18 12:45 06/14/18 12:45 06/14/18 12:45 06/14/18 12:45 Oxygen Flow Rate (L/min) 4 Oxygen Delivery Method Room Air Weight: 76.6 kg Body Mass Index (BMI) 24.9 Intake and Output for Last 24 Hours 06/12/18 06/13/18 06/14/18 23:59 23:59 23:59 Intake Total 1330 / 1330 1305 / 1305 250 / 250 Output Total 2 / 2 Balance 1328 / 1328 1305 / 1305 250 / 250 Medical Necessity - Tobacco Use Smoking Status: Current every day smoker Tobacco Use: Cigarettes Assessment/Plan All Active Problems (Last Reviewed 06/11/18 @ 17:13 by RONNY Harper) CVA (cerebral vascular accident) (Acute) Carotid stenosis, bilateral (Acute) 52 yr M with PMH tobacco abuse admitted with left arm weakness and ataxia, found to have acute/subacute right MCA stroke (right fronto-parietal) and watershed infarctions in the right parieto-occipital, CTA head/neck showed right ICA < 50% stenosis and Left ICA >70% stenosis. 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 Bleeding risks discussed with the patient. Dual AP for 3 months -Lipitor 80 mg PO q hs -MRI brain and CTA head/neck reviewed -Carotid ultrasound-left ICA > 70% stenosis -KYREE- EF 60%, normal LA size, no PFO -LDL-48, [id number] -Check Hypercoagulable panel. -Avoid hypotension -Vascular surgery recommendation per Dr. Alves. Follow up with Vascular surgery as outpatient. -Left Carotid stenosis probably asymptomatic at present. Maximize medical therapy -Patient counseled to quit smoking, he understands the same -Stroke risk factors discussed and stroke education provided -PT/OT -GI/DVT prophylaxis -Further medical management per primary team -Fall precautions -Follow up with Neurology as outpatient in 2-3 weeks -Please call with questions if any -Thank you for allowing us to participate in patient's care and management I spent 30 minutes taking history, doing physical examination, reviewing medical records, coordinating care and counseling the patient.
--- NOTE | 2018-06-14 14:16 | PN.NEURO_ITS ---
Patient Problems: Active and Suspected Problems (Last Reviewed 06/11/18 @ 17:13 by RONNY Harper) CVA (cerebral vascular accident) (Acute) Carotid stenosis, bilateral (Acute) Subjective: No Issues overnight. Patient was admitted with left arm weakness and ataxia, found to have Right ICA < 50% stenosis and Left ICA > 70% stenosis on CTA head/neck, MRI brain showed right MCA distribution embolic stroke right fronto- parietal (possibly athero-embolic) and watershed infarction in the right parieto-occipital region. - Physical Exam General: Alert HEENT: Normocephalic Neck: Supple Lungs: Normal air movement Cardiovascular: Normal S1, Normal S2 Abdomen: Bowel Sounds Present Extremities: No cyanosis Skin: No rashes Neurological: - - consious, alert, CN 2-12 grossly intact, Power 5/5 right UE/LE, 4/5 left UE, 5/5 left LE, pronator drift left UE, left UE cerebellar ataxia present, no sensory loss, gait normal, Reflexes + B/L B/S/T/K/A. NIHSS 2 at present, mRS 0 at baseline Psych/Mental Status: Normal Affect Vital Signs Temp Pulse Resp BP Pulse Ox 98.0 F 52 L 17 112/63 97 06/14/18 12:45 06/14/18 12:45 06/14/18 12:45 06/14/18 12:45 06/14/18 12:45 Oxygen Flow Rate (L/min) 4 Oxygen Delivery Method Room Air Weight: 76.6 kg Body Mass Index (BMI) 24.9 Intake and Output for Last 24 Hours 06/12/18 06/13/18 06/14/18 23:59 23:59 23:59 Intake Total 1330 / 1330 1305 / 1305 250 / 250 Output Total 2 / 2 Balance 1328 / 1328 1305 / 1305 250 / 250 Medical Necessity - Tobacco Use Smoking Status: Current every day smoker Tobacco Use: Cigarettes Assessment/Plan All Active Problems (Last Reviewed 06/11/18 @ 17:13 by RONNY Harper) CVA (cerebral vascular accident) (Acute) Carotid stenosis, bilateral (Acute) 52 yr M with PMH tobacco abuse admitted with left arm weakness and ataxia, found to have acute/subacute right MCA stroke (right fronto-parietal) and watershed infarctions in the right parieto-occipital, CTA head/neck showed right ICA < 50% stenosis and Left ICA >70% stenosis. 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 Bleeding risks discussed with the patient. Dual AP for 3 months -Lipitor 80 mg PO q hs -MRI brain and CTA head/neck reviewed -Carotid ultrasound-left ICA > 70% stenosis -KYREE- EF 60%, normal LA size, no PFO -LDL-48, [id number] -Check Hypercoagulable panel. -Avoid hypotension -Vascular surgery recommendation per Dr. Alves. Follow up with Vascular surgery as outpatient. -Left Carotid stenosis probably asymptomatic at present. Maximize medical therapy -Patient counseled to quit smoking, he understands the same -Stroke risk factors discussed and stroke education provided -PT/OT -GI/DVT prophylaxis -Further medical management per primary team -Fall precautions -Follow up with Neurology as outpatient in 2-3 weeks -Please call with questions if any -Thank you for allowing us to participate in patient's care and management I spent 30 minutes taking history, doing physical examination, reviewing medical records, coordinating care and counseling the patient.
[2018-06-14 16:01] LABS: Hemoglobin A1c 5.5 % (4.2-6.3)
--- NOTE | 2018-06-14 16:54 | DS.PCM_ITS ---
Discharge Date and Diagnosis Date of Admission: 06/11/18 Date of Discharge: 06/14/18 - Primary Discharge Diagnosis (1) L sided upper extremity weakness and ataxia secondary to Subacute R MCA Territory CVA (2) BL Carotid Stenosis (R Proximal ICA < 50% stenosis, L proximal ICA region ~70% stenosis) (3) Tobacco Abuse (4) Primary Hyperthyroidism (TSH low, FT4 mildly elevated, consistent w/ primary hyperthyroidism, Unclear Specific etiology, will need RAIU set-up as outpatient) - Secondary Discharge Diagnosis Tobacco use Hospital Course and Treatment Imaging Results: 06/14/18 08:00 Echo Transesophageal (KYREE) [ECHO] Routine Dr. Feliciano/Dr. Freitas Neurology Dr. Alves Vascular Surgery Operations: None Procedures: 2-D Echocardiogram, EKG Summary of Care Provided: The patient is a 52 y/o M w/ PMHx: Tobacco use who presented to the [facility] ED on 06/11/18 with history of ongoing L sided upper extremity weakness and ataxia. In the ED work-up included CBC w/ WBC 4.2, Hgb 16.1, Plts 134 without marked L shift, unremarkable coags, CMP w/ glucose 117 otherwise not marked, CT Head w/ chronic involutional changes, cortical and subcortical decreased attenuation lesions in the right parietal lobe, right frontal lobe consistent with a subacute ischemic lesion in the right middle cerebral artery territory, CTA Neck w/ minimally ectatic aortic arch 3.3 cm, patent bovine cervical arch branching, normal subclavian arteries, calcified plaque right carotid bulb and proximal ICA with less than 50% stenosis, calcified plaque left carotid bulb and proximal ICA, least dimension proximal ICA proximal 1.8 mm widening thereafter to be caliber of 5.3 mm with approximate 70% stenosis, patent thereafter into the skull base, no carotid dissection, normal bilateral cervical vertebral arteries, CXR w/ chronic changes with no acute process. ED vitals with initial BP 158/87. Admitted to PCU, MRI Brain w/ findings consistent with right parieto-occipital watershed infarct with scattered areas of enhancement consistent with components of subacute infarct, additional scattered areas of right parietal/posterior frontal lobe and rolandic cortex acute to subacute infarct with no acute evidence of intracranial bleed, CT Head w/ normal [place] without demonstrated aneurysm or significant stenosis, ECHO w/ normal LV size, mild concentric LVH, normal LV systolic function, EF 55%, no evidence for diastolic dysfunction, PT/OT/Speech/Nutrition evaluation per protocol. Given timeline appropriate to initial HTN regimen as sxs x 1 week, added HCTZ-ACEI with improved BP, maintained on asa and plavix added with planned dual antiplt therapy x 3 months with possible single transition following, added high dose statin w/ AM FLP w/ TG 67, TChol 94, LDL 48, VLDL 13, HDL 33, maintained on fall precautions. Neurology consulted, agreed with current regimen, requested hypercoag panel which was obtained and pending upon discharge in addition to Surgery evaluation w/ Dr. Alves 06/14/18 with carotid US with similar findings to MRA with planned follow-up outpatient in 2 weeks. Additionally, Dr. Feliciano requested KYREE, which was obtained on and not marked appearing. During admission, noted TSH low, FT4 mildly elevated, consistent w/ primary hyperthyroidism, requested patient to follow-up with PCP for further evaluation and RAIU set-up as outpatient. Patient discharged to home in stable condition with follow-up with PCP and Neurology as well as Vascular surgery as noted. DAY OF DISCHARGE PROGRESS NOTE: Subjective: Patient without acute event overnight per self and nursing report. Patient notes ongoing mild improvement of LUE ataxia and weakness. Patient denies fever, chills, nausea, emesis, abdominal pain, chest pain or dyspnea. Patient agreeable to discharge to home with outpatient therapies including PT, OT and Speech. Patient will be discharged with follow-up with primary care physician within 3-5 days in addition to Neurology in 2 weeks as well as Vascular Surgery in 2 weeks. Objective: Physical Examination: General: awake, alert, oriented x 3 and cooperative, seated upright, NAD. Skin: normal color, turgor, no icterus, cyanosis. HEENT: AT/NC, EOMI, PERRLA, MMM. Lungs: Improved, CTA BL, mildly diminished BS bases, moderate effort, no rales, ronchi or wheezing. Heart: Regular rate and rhythm; no gallop, rub audible. Abdomen: soft, NTTP, ND, normal BS. Extremities: no cyanosis, clubbing, or edema. Neurological: patient awake, alert, oriented x 3; cognitive function intact; pupils equally reactive to light and accomodation; cranial nerves II-XII grossly normal, moving all 4 extremities, no focal deficits, mildly improved ataxia left upper extremity, strength 3-45, upgoing Babinski left, heel to gerardo and f maya to nose appropriate right side, improved LUE FTN, appropriate L HTS, sensation intact. Psychiatric: affect appears normal, no acute evidence of depressive or anxiety feelings. Assessment and Plan: Please see hospital summary above. Discharge Activity: - - Continue outpatient therapies. May not drive until cleared per Neurology. May resume sexual activity in: No Restrictions Weight Bearing Status: Weight bearing as tolerated Call your doctor if you observe: Fever of 101 or Higher, Inability to urinate, Inability to have a bowel movement, Shortness of breath, Dizziness, Fainting spells, Chest pain, Uncontrolled pain Home Medications: Medications to take at Discharge Aspirin [Aspirin, Baby] 81 mg PO DAILY@0800 #30 tab.chew 06/14/18 Atorvastatin Calcium [Lipitor] 80 mg PO QHS #30 tab 06/14/18 Clopidogrel Bisulfate [Plavix] 75 mg PO DAILY #30 tab 06/14/18 Lisinopril/Hydrochlorothiazide [Zestoretic 10/12.5 Tablet] 1 tab PO DAILY #30 tab 06/14/18 Following Prescrptions Were Given to Patient: Aspirin [Aspirin, Baby] 81 mg PO DAILY@0800 #30 tab.chew Atorvastatin Calcium [Lipitor] 80 mg PO QHS #30 tab Clopidogrel Bisulfate [Plavix] 75 mg PO DAILY #30 tab Lisinopril/Hydrochlorothiazide [Zestoretic 10/12.5 Tablet] 1 tab PO DAILY #30 tab Primary Care Physician: NOT,DEFINED [NON-STAFF] - Please follow up with your Primary Care Physician in: Follow-up with PCP within 3-5 days. Please Follow Up With: Tutu Feliciano MD When: Within 2-3 weeks. Please Follow Up With: Edmar Alves MD When: Follow-up in 2-4 weeks per his request. Patient Instructions: Effects of a Stroke on the Brain and Body, Stroke Prevention: Using Blood Thinners (Anticoagulants), Controlling Your Cholesterol, Controlling High Blood Pressure, Tips for Using Less Salt, Why Do You Smoke?, Planning to Quit Smoking, Getting Support for Quitting Smoking, Coping with Smoking Withdrawal, Staying Smoke-Free Disposition: Home with Home Health Minutes spent on discharge:: 35 Patient Condition:: Fair Medical Necessity - Tobacco Use Smoking Status: Current every day smoker Tobacco Use: Cigarettes Meaningful Use Info Meaningful Use Diagnoses (Choose all that apply): Ischemic CVA - CVA Therapy Assessed for PT,OT and/or ST?: Yes - Ischemic Stroke Antithrombotic order at d/c?: Yes Dx of Atrial fib/flutter?: No Anticoagulant at discharge?: No Reason anticoagulant not ordered: Treatment not Indicated Statins at discharge?: Yes Primary Dx Acute Ischemic CVA?: Yes IV tPA ordered during stay?: No Reason IV t-PA not ordered: Treatment not Indicated Code Visit Inpatient E&M: 97506 Disch Hosp
[2018-06-21 14:07] LABS: Protein C Antigen 73 % (60-150)
[2018-06-22 09:00] LABS: Anti-Cardiolipin Ab, IgG, Qn < 9 GPL U/mL (0-14); Anti-Cardiolipin Ab, IgM, Qn < 9 MPL U/mL (0-12); Anti-Thrombin 3 AG, Immunol 91 % (72-124); Antithrombin 3 Function 106 % (75-135); Beta-2-Glycoprotein I IgA <9 (0-25); Beta-2-Glycoprotein I IgG <9 (0-20); Beta-2-Glycoprotein I IgM <9 (0-32); Protein C, Functional 75 % (73-180)
== END 2018-06-14 15:16 | disposition home or self-care (01) | DRG 66 ==
LOC: ED 17:20 → PCU 19:06
PROVIDERS: Psychiatry & Neurology Neurology; Emergency Provider Emergency Medicine; Visit Provider Family Medicine
DX: I63.511 Cerebral infarction due to unspecified occlusion or stenosis of right middle cerebral artery (principal); R27.0 Ataxia, unspecified; G83.24 Monoplegia of upper limb affecting left nondominant side; F17.210 Nicotine dependence, cigarettes, uncomplicated; E05.90 Thyrotoxicosis, unspecified without thyrotoxic crisis or storm; I65.23 Occlusion and stenosis of bilateral carotid arteries; Z23 Encounter for immunization
CPT/HCPCS: 36415; 70450; 70496; 70498; 70553; 71046; 80053; 80061; 81240; 81241; 83036; 83735; 84439; 84443; 85025; 85300; 85301; 85302; 85303; 85610; 85730; 86146; 86147; 92523; 92526; 93005; 93306; 93312; 93320; 93325; 93880; 97110; 97162; 97165; 97530; 99283; A9585; J7040; Q9967; 90686; A4216

== ENCOUNTER 2021-04-03 15:57 | Emergency (ER) | payer SELFPAY ==
[2021-04-03 15:59] VITALS: BP 117/62; PULSE 79; RESP 16; TEMP 36.6; O2SAT 97; BMI 23.6
--- NOTE | 2021-04-03 16:29 | CT_ITS ---
We are attempting to reach an attending provider to discuss findings. An addendum with communication details will be sent when the communication is complete. EXAMINATION : Head CT w/out contrast HISTORY : Altered Mental Status COMPARISON : 06/12/2018. TECHNIQUE : Multiple contiguous axial images were obtained from the skull base to the vertex without intravenous contrast. A radiation dose optimization technique was used for this scan. FINDINGS : There is no evidence for acute intracranial hemorrhage, mass effect, or midline shift. There is no extra-axial fluid collection. There are periventricular white matter changes consistent with chronic microvascular ischemic disease. There is sulcal widening and ventricular enlargement consistent with cerebral atrophy. New vague hypodense area in the left parietal and occipital lobes (image 22, series 2). Encephalomalacia in the right parietal and frontal lobes. The skull base and calvarium are unremarkable. The orbits are unremarkable. The paranasal sinuses are clear. The mastoid air cells are well-aerated. The soft tissues are unremarkable. CT/Brain/Head without Contrast IMPRESSION: New left MCA/NUT PICKER watershed territory acute to subacute infarct. No evidence of intracranial hemorrhage or significant mass effect. Consider Brain MRI. Old infarcts in the right parietal and frontal lobes. Chronic involutional and ischemic changes of the brain. Electronically Signed: Beni Bryan MD at 18:51 EDT Tel , Service support ,
--- NOTE | 2021-04-03 16:30 | EKG12_ITS ---
Test Reason : Blood Pressure : / mmHG Vent. Rate : 102 BPM Atrial Rate : 102 BPM P-R Int : 116 ms QRS Dur : 084 ms QT Int : 348 ms P-R-T Axes : 077 033 072 degrees QTc Int : 453 ms Sinus tachycardia Nonspecific ST and T wave abnormality Abnormal ECG Confirmed by TRUPTI YANES, JOSE MIGUEL ([id number]), fan mail editor KEMAR GE ([id number]) on 04/08/2021 9:06:29 AM Referred By: SHADI Confirmed By:MAGNUS LYLES MD
--- NOTE | 2021-04-03 16:36 | EX.ED.DYSGE1 ---
HPI History of Present Illness Chief Complaint: Confusion Narrative Narrative: 55-year-old male presenting with altered mental status with his . Patient's states he has history of stroke, hyperlipidemia, hypertension. She states his stroke was 3 years ago. She states he was last known well at 9 PM last evening when she went to bed. When she came home today she found him confused and everywhere that they went he stated I have to get out of here. He is not acting at his baseline. There is no history of any trauma. She states he does not have any psychiatric history and does not do drugs or alcohol. She does state that earlier today he defecated on himself and has still has feces on his feet. 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 [facility] Medical History (Updated 04/03/21 @ 22:28 by Rebecca Ellison NP-C) History of CVA (cerebrovascular accident) Hyperlipidemia Hypertension Home Medications aspirin 81 mg PO DAILY@0800 #30 tab.chew 06/14/18 [Rx Last Taken Unknown] atorvastatin 80 mg PO QHS #30 tab 06/14/18 [Rx Last Taken Unknown] clopidogrel 75 mg PO DAILY #30 tab 06/14/18 [Rx Last Taken Unknown] lisinopril-hydrochlorothiazide 1 tab PO DAILY #30 tab 06/14/18 [Rx Last Taken Unknown] Allergy/AdvReac Type Severity Reaction Status Date / Time No Known Allergies Allergy Unverified 04/03/21 16:04 Social History Smoking Status: Current every day smoker tobacco type: cigarettes alcohol intake: never ROS ROS ED Review of Systems ROS Unobtainable: due to mental condition and due to mental status EXAM Physical Exam Const Vital Signs: 04/03/21 15:59 04/03/21 18:04 04/03/21 21:00 Temperature 97.9 F Temperature Source Temporal Pulse Rate 79 98 106 H Respiratory Rate 16 16 20 H Blood Pressure 117/62 143/88 H Blood Pressure Mean 80 106 Pulse Ox 97 98 Oxygen Delivery Method Room Air Room Air Positive unkempt General Appearance ED: unkempt and NAD HEENT Reports moist mucous membranes Negative for trauma Eyes PERRL and EOMs intact bilaterally Resp normal respiratory effort and clear to auscultation bilaterally Cardio regular rate and regular rhythm GI normal to inspection, nondistended, normoactive bowel sounds Extremity normal to inspection General Extremety ED: Negative for tenderness Neuro CN's II-XII intact bilaterally Neuro Narrative: Patient is moving all 4 extremities. He appears confused and trying to get out of the bed. There are no focal neurologic deficits. Sensorium / Orientation: alert Psych Psych Narrative: Confused Appearance: unkempt Skin no rashes or lesions noted and no wounds Skin Narrative: Feces noted on patient's feet bilaterally. MDM MDM MDM Narrative Medical decision making narrative: Patient presenting with altered mental status of unknown etiology. Last known well was 2100 last evening. Lab work vessels are is unremarkable with exception of a little bit of prerenal azotemia and an elevated troponin up to 31.6. Patient is not complaining of any chest pain but is not able to give me any complaints. EKG shows a sinus rhythm at [address]-T changes on my interpretation. Repeat troponin is lower at 225.5 at the 2-hour kenny. Repeat EKG shows a sinus rhythm at at 98 bpm again with nonspecific ST-T wave abnormalities. Patient was discussed with Dr. Kenny who is on for cardiology who felt this was likely not primary cardiac problem. Patient found to have new left MCA GEOGRAPHIC INFORMATION SYSTEM ANALYST watershed territory infarct on CT brain. CTA of the head and neck was performed which showed 70% carotid stenosis bilaterally which appeared chronic with mild increased changes. There was motion artifact on the CTA. At this point patient was discussed with [facility] who did beam in and did not think he was a TPA candidate but did recommend transfer to [facility] given the concern for possible cerebral edema. Patient's family member was counseled on findings and did sign consent for transfer. Patient was given aspirin. He is still very confused and his exam is not changed. He will be transported in stable condition. Impression: 1. Acute CVA 2. Altered mental status 3. Elevated troponin Lab Data Attestation: I reviewed the patient's lab results. Labs: Laboratory Results - last 24 hr 04/03/21 04/03/21 04/03/21 17:15 17:15 17:15 WBC 11.0 RBC 5.77 Hgb 16.5 Hct 48.0 MCV 83.2 MCH 28.6 MCHC 34.4 RDW Std Deviation 39.1 RDW Coeff of Yuridia 12.9 Plt Count 181 MPV 11.2 Immature Gran % (Auto) 0.400 Neut % (Auto) 86.1 H Lymph % (Auto) 7.9 L Keith % (Auto) 5.4 Eos % (Auto) 0.0 Baso % (Auto) 0.2 Absolute Neuts (auto) 9.4 H Absolute Lymphs (auto) 0.86 Nucleated RBC % 0 Sodium 138 Potassium 3.7 Chloride 102 Carbon Dioxide 21.0 Anion Gap 15 BUN 17 Creatinine 0.83 Estim Creat Clear Calc 96.23 Est GFR (MDRD) Af Amer 125 Est GFR (MDRD) Non-Af 103 BUN/Creatinine Ratio 20.5 H Glucose 309 H Calcium 9.1 Total Bilirubin 1.00 AST 49 H ALT 35 Alkaline Phosphatase 145 H Ammonia Troponin I High Sens 231.6 H* Total Protein 8.0 Albumin 4.1 Globulin 3.9 Albumin/Globulin Ratio 1.1 Ethyl Alcohol < 3.0 04/03/21 04/03/21 17:40 19:13 WBC RBC Hgb Hct MCV MCH MCHC RDW Std Deviation RDW Coeff of Yuridia Plt Count MPV Immature Gran % (Auto) Neut % (Auto) Lymph % (Auto) Keith % (Auto) Eos % (Auto) Baso % (Auto) Absolute Neuts (auto) Absolute Lymphs (auto) Nucleated RBC % Sodium Potassium Chloride Carbon Dioxide Anion Gap BUN Creatinine Estim Creat Clear Calc Est GFR (MDRD) Af Amer Est GFR (MDRD) Non-Af BUN/Creatinine Ratio Glucose Calcium Total Bilirubin AST ALT Alkaline Phosphatase Ammonia < 10.0 L Troponin I High Sens 225.5 H* Total Protein Albumin Globulin Albumin/Globulin Ratio Ethyl Alcohol Radiography Diagnostic Testing: Radiology Impression Brain CT 04/03/21 16:29 IMPRESSION: New left MCA/GEOGRAPHIC INFORMATION SYSTEM ANALYST watershed territory acute to subacute infarct. No evidence of intracranial hemorrhage or significant mass effect. Consider Brain MRI. Old infarcts in the right parietal and frontal lobes. Chronic involutional and ischemic changes of the brain. Electronically Signed: Beni Bryan MD at 18:51 EDT Tel , Service support , ADDENDUM: 04/03/21 1900 IMPRESSION: New left MCA/GEOGRAPHIC INFORMATION SYSTEM ANALYST watershed territory acute to subacute infarct. No evidence of intracranial hemorrhage or significant mass effect. Consider Brain MRI. Old infarcts in the right parietal and frontal lobes. Chronic involutional and ischemic changes of the brain. N.B. : The above Results were Read Back by Beni Bryan MD to Edward Zhou DO, and understanding confirmed on 04/03/2021 18:53:54 (ET). Electronically Signed: Beni Bryan MD at 18:51 EDT Tel , Service support , Chest X-Ray 04/03/21 18:15 IMPRESSION: No acute radiographic abnormalities. Electronically Signed: Beni Bryan MD at 18:42 EDT Tel , Service support , Head/Neck CTA 04/03/21 19:18 IMPRESSION: 1. Limited study due to a large amount of motion artifact. 2. Calcification in carotid bulb and proximal internal carotid arteries bilaterally stenosis of greater than 70% bilaterally. This has progressed from the reference examination. Individualized dose optimization techniques were used for this CT. at 2103 Reported and signed by: Donald Rivera MD Electronically Signed: Donald Rivera MD at 21:02 EDT Tel , Service support , ADDENDUM: 04/03/216 IMPRESSION: 1. Limited study due to a large amount of motion artifact. 2. Calcification in carotid bulb and proximal internal carotid arteries bilaterally stenosis of greater than 70% bilaterally. This has progressed from the reference examination. Individualized dose optimization techniques were used for this CT. at 2103 Reported and signed by: Donald Rivera MD N.B. : The above Results were Read Back by Donald Rivera MD to Edward Zhou DO, and understanding confirmed on 04/03/2021 21:09:23 (ET). Electronically Signed: Donald Rivera MD at 21:02 EDT Tel , Service support , ADDENDUM: 04/03/21 2116 IMPRESSION: 1. Limited study due to a large amount of motion artifact. 2. Calcification in carotid bulb and proximal internal carotid arteries bilaterally stenosis of greater than 70% bilaterally. This has progressed from the reference examination. Individualized dose optimization techniques were used for this CT. at 2103 Reported and signed by: Donald Rivera MD Electronically Signed: Donald Rivera MD at 21:08 EDT Tel , Service support , N.B. : The above Results were Read Back by Donald Rivera MD to Edward Zhou DO, and understanding confirmed on 04/03/2021 21:09:23 (ET). Discharge Plan Triage Chief Complaint: Confusion ED Provider: Edward Zhou Dx/Rx/DC Orders Prescriptions: No Action atorvastatin 80 MG tablet 80 mg PO QHS Qty: 30 RF: 0 clopidogrel 75 MG tablet 75 mg PO DAILY Qty: 30 RF: 0 aspirin 81 MG tablet,chewable 81 mg PO DAILY@0800 Qty: 30 RF: 0 lisinopril-hydrochlorothiazide 1 TABLET tablet 1 tab PO DAILY Qty: 30 RF: 0 Primary Care Provider: Care Physician,No Primary
[2021-04-03 17:29] LABS: Absolute Lymphocyte Count 0.86 X10^3/uL (0.83-4.51); Absolute Neutrophil Count 9.4 X10^3/uL (2.0-7.7); Basophil# 0.02 X10^3/uL; Basophil% 0.2 % (0-1); Hemoglobin 16.5 g/dL (13.0-16.5); Lymphocyte # 0.86 X10^3/ul (0.83-4.51); Lymphocyte % 7.9 % (19-41); Mean Corp Hgb Conc 34.4 g/dL (32-36); Mean Corpuscular Hgb 28.6 pg (27.0-32.0); Mean Corpuscular Volume 83.2 fL (80-94); Mean Platelet Vol. 11.2 fl (6.2-12.0); Monocyte# 0.59 X10^3/uL; Monocyte% 5.4 % (0-10); NRBC Flagged by Analyzer 0 % (0-5); Neutrophil # 9.44 X10^3/uL (2.7-7.7); Neutrophil % 86.1 % (47-70); Platelet Count 181 K/mm3 (150-450); RBC Distribution Width CV 12.9 % (11.6-14.6); RBC Distribution Width SD 39.1 fl (35.1-43.9); Red Blood Count 5.77 M/mm3 (4.6-6.2)
[2021-04-03 17:58] LABS: ALB/GLOB Ratio 1.1 RATIO (0.9-2.4); AST(SGOT) 49 U/L (15-37); Alanine Aminotransfer ALT/SGPT 35 U/L (16-61); Albumin, Serum 4.1 g/dL (3.2-5.0); Alkaline Phosphatase 145 U/L (45-117); Anion Gap 15 (5-15); BUN 17 mg/dL (7-18); BUN/Creat Ratio 20.5 RATIO (10-20); Calcium,Total 9.1 mg/dL (8.5-10.1); Chloride 102 mmol/L (98-107); Creatinine, Serum 0.83 mg/dL (0.70-1.30); EST Glomerular Filtration Rate 103 mL/min (>60); Est Glom Filt Rate - Afr Amer 125 mL/min (>60); Estimated Creatinine Clearance 96.23 ml/min; Globulin 3.9 g/dL (2.2-4.2); Glucose 309 mg/dL (74-106); Potassium 3.7 mmol/L (3.5-5.1); Sodium Level 138 mmol/L (136-145); Troponin-I HS 231.6 pg/mL (3.0-78.5)
[2021-04-03 18:01] LABS: Alcohol, Blood (Medical)-Serum < 3.0 mg/dL
[2021-04-03 18:04] VITALS: BP 143/88; PULSE 98; RESP 16
[2021-04-03] MEDS: 0.9% Normal Saline 1,000 ML 1000 ML IV (18:05)
[2021-04-03 18:12] LABS: Ammonia < 10.0 umol/L (11-32)
--- NOTE | 2021-04-03 18:15 | RAD_ITS ---
INDICATION: Altered Mental Status EXAMINATION/TECHNIQUE: X-RAY - XR Chest 1 View COMPARISON: 06/11/2018. FINDINGS: The lungs are clear. The cardiomediastinal silhouette is unremarkable. No pleural effusion or pneumothorax. Degenerative changes of the thoracic spine. RAD/Chest 1 View (Portable) IMPRESSION: No acute radiographic abnormalities. Electronically Signed: Beni Bryan MD at 18:42 EDT Tel , Service support ,
--- NOTE | 2021-04-03 18:30 | CM.ED ---
SOCIAL WORK Referral Source: Nafisa JAIME Reason for Consult: Support Patient presents to [facility] ER with confusion. Mother states patient was walking around the home naked and attempted to walk outside naked. Mother states patient unable to identify where he is. Mother reports patient just stated I need to get out of here. Mother visibly upset. Emotional support and education provided. This worker to remain available for needs. Luz Rankin, DISPLAY CARVER, LIMOUSINE DRIVER
--- NOTE | 2021-04-03 19:15 | EKG12_ITS ---
Test Reason : REPEAT Blood Pressure : / mmHG Vent. Rate : 098 BPM Atrial Rate : 098 BPM P-R Int : 126 ms QRS Dur : 082 ms QT Int : 378 ms P-R-T Axes : 077 035 046 degrees QTc Int : 482 ms Normal sinus rhythm Nonspecific ST abnormality Prolonged QT Abnormal ECG Confirmed by TRUPTI YANES, JOSE MIGUEL ([id number]), editorial project manager KEMAR GE ([id number]) on 04/08/2021 9:06:04 AM Referred By: SHADI Confirmed By:MAGNUS LYLES MD
--- NOTE | 2021-04-03 19:18 | CT_ITS ---
We are attempting to reach an attending provider to discuss findings. An addendum with communication details will be sent when the communication is complete. EXAM: CT ANGIOGRAPHY HEAD AND NECK WITH INTRAVENOUS CONTRAST : 1965 CLINICAL INDICATION: altered mental status TECHNIQUE: [place]/head and neck CT angiography protocol performed with intravenous contrast. This CT exam was performed using one or more of the following dose reduction techniques: automated exposure control, adjustment of the mA and/or kV according to patient size, and/or use of iterative reconstruction technique. This report was created using Profilepasser report generation technology. MIP reconstructed images were created and reviewed. CONTRAST: IV 100mL [id number] COMPARISON: None. FINDINGS: LIMITATIONS: The study is limited due to a large amount of motion artifact. HEAD: RIGHT ANTERIOR CEREBRAL ARTERY: Unremarkable. No significant stenosis at the visualized segments. Anterior communicating artery is present. No aneurysm. RIGHT MIDDLE CEREBRAL ARTERY: Unremarkable. No significant stenosis at the visualized segments. No aneurysm. RIGHT POSTERIOR CEREBRAL ARTERY: Unremarkable. No occlusion or significant stenosis. No aneurysm. LEFT ANTERIOR CEREBRAL ARTERY: Unremarkable. No significant stenosis at the visualized segments. No aneurysm. LEFT MIDDLE CEREBRAL ARTERY: Unremarkable. No significant stenosis at the visualized segments. No aneurysm. LEFT POSTERIOR CEREBRAL ARTERY: Unremarkable. No occlusion or significant stenosis. No aneurysm. BASILAR ARTERY: Unremarkable. No significant stenosis. No aneurysm. GREAT VESSELS OF AORTIC ARCH: Unremarkable. Normal anatomy, patent. OTHER VASCULATURE: No vascular malformation. NECK: RIGHT COMMON CAROTID ARTERY: Unremarkable. No significant stenosis. No dissection or occlusion. RIGHT INTERNAL CAROTID ARTERY: There are calcifications seen within the carotid bulbs and proximal internal carotid arteries bilaterally. There is a 70% stenosis of the origin of the right internal carotid artery due to calcific plaque.. This has increased from the reference examination. The distal internal carotid arteries are patent. No dissection or occlusion. RIGHT EXTERNAL CAROTID ARTERY: Unremarkable. No occlusion. RIGHT VERTEBRAL ARTERY: Unremarkable. No significant stenosis. No dissection or occlusion. LEFT COMMON CAROTID ARTERY: Unremarkable. No significant stenosis. No dissection or occlusion. LEFT INTERNAL CAROTID ARTERY: There is a 70% stenosis at the origin of the left internal carotid artery due to calcific plaque. This has also progressed from the reference examination. LEFT EXTERNAL CAROTID ARTERY: Unremarkable. No occlusion. LEFT VERTEBRAL ARTERY: Unremarkable. No significant stenosis. No dissection or occlusion. LUNG APICES: Unremarkable as visualized. SOFT TISSUES: Unremarkable. CAROTID STENOSIS REFERENCE USING NASCET CRITERIA: % ICA stenosis = (1 - narrowest ICA diameter/diameter of distal cervical ICA) x 100. Moderate - 50-69% stenosis. Severe - 70-94% stenosis. Near occlusion - 95-99% stenosis. Occluded - 100% stenosis. CT/CTA Head AND Neck W/ Contrast IMPRESSION: 1. Limited study due to a large amount of motion artifact. 2. Calcification in carotid bulb and proximal internal carotid arteries bilaterally stenosis of greater than 70% bilaterally. This has progressed from the reference examination. Individualized dose optimization techniques were used for this CT. at 2103 Reported and signed by: Donald Rivera MD Electronically Signed: Donald Rivera MD at 21:02 EDT Tel , Service support ,
[2021-04-03] MEDS: Aspirin 325 MG Tablet PO (19:36)
[2021-04-03 20:03] LABS: Troponin-I HS 225.5 pg/mL (3.0-78.5)
[2021-04-03] MEDS: LORazepam 2 MG/ML Syringe 1 MG IV ×2 (20:12→20:40)
[2021-04-03 21:00] VITALS: PULSE 106; RESP 20; O2SAT 98
--- NOTE | 2021-04-03 22:21 | CON.PCM_ITS ---
Documented by User: Rebecca Ellison NP-C 04/03/21 22:32 Assessment & Plan Assessment/Plan (1) CVA (cerebral vascular accident): QUALIFIERS: Laterality of affected vessel: left Precerebral and cerebral artery: middle cerebral artery PLAN: 1. CVA -Due to size and location of the stroke requested ER physician obtain CTA head and neck and per these findings recommended further evaluation with [facility] neuro team for recommendations and that if [facility] neuro team believe patient could remain at [facility] would pursue admission and follow-up further work- up. However it was the recommendation that patient be transferred to [facility] for further evaluation for intervention due to patient's age, and location and size of stroke. It should be noted the patient had previous stroke in 2018 but has not been taking any prescription medications for prevention of further stroke for some time. HPI Consult Data Date of Consult: 04/03/21 HPI Narrative Reason for Consultation: evaluation for admission HPI Narrative: TED DE LA ROSA, is a 55 M who presents with confusion and abnormal behavior. Patient's mother is at bedside and states that she is concerned because she found the patient covered in feces and he was wandering ar ound his backyard naked. Patient speech is nonsensical and repetitive. [facility] Medical History (Updated 04/03/21 @ 22:28 by Rebecca Ellison NP-C) History of CVA (cerebrovascular accident) Hyperlipidemia Hypertension Home Medications aspirin 81 mg PO DAILY@0800 #30 tab.chew 06/14/18 [Rx Last Taken Unknown] atorvastatin 80 mg PO QHS #30 tab 06/14/18 [Rx Last Taken Unknown] clopidogrel 75 mg PO DAILY #30 tab 06/14/18 [Rx Last Taken Unknown] lisinopril-hydrochlorothiazide 1 tab PO DAILY #30 tab 06/14/18 [Rx Last Taken Unknown] Allergy/AdvReac Type Severity Reaction Status Date / Time No Known Allergies Allergy Unverified 04/03/21 16:04 unable to obtain no surgical history Social History Smoking Status: Current every day smoker tobacco type: cigarettes alcohol intake: never ROS Review of Systems ROS Unobtainable: due to mental status Physical Exam Const alert General Appearance: uncooperative, disheveled and appears older than stated age Orientation / Consciousness: confused and disoriented Eyes conjunctivae normal and no scleral icterus Neck full ROM, supple and no JVD General: trachea midline Chest inspection of chest normal Resp normal respiratory effort, normal air movement and clear to auscultation bilaterally Cardio regular rate, regular rhythm, S1 normal heart sound and S2 normal heart sound GI normal to inspection, nondistended, normoactive bowel sounds, soft to palpation and non-tender Back/Spine normal ROM and normal to inspection Extremity normal to inspection, full ROM, normal capillary refill and no clubbing, cyanosis or edema Skin no rashes or lesions noted Neuro Sensorium / Orientation: alert, confused and other Unable to answer questions appropriately, follow directions Speech: speech abnormal Details: Positive for other (Nonsensical, repetitive) Psych Appearance: unkempt and disheveled Attitude: uncooperative Activity / Motor Behavior: restless Speech: incoherent, excessive and other Repetitive Thought Process: disorganized Lab / Micro Data Result Diagrams: 04/03/21 17:15 04/03/21 17:15 Labs: Laboratory Results - last 24 hr 04/03/21 17:15: WBC 11.0, RBC 5.77, Hgb 16.5, Hct 48.0, MCV 83.2, MCH 28.6, MCHC 34.4, RDW Std Deviation 39.1, RDW Coeff of Yuridia 12.9, Plt Count 181, MPV 11.2, Immature Gran % (Auto) 0.400, Neut % (Auto) 86.1 H, Lymph % (Auto) 7.9 L, [place] % (Auto) 5.4, Eos % (Auto) 0.0, Baso % (Auto) 0.2, Absolute Neuts (auto) 9.4 H, Absolute Lymphs (auto) 0.86, Nucleated RBC % 0 04/03/21 17:15: Sodium 138, Potassium 3.7, Chloride 102, Carbon Dioxide 21.0, Anion Gap 15, BUN 17, Creatinine 0.83, Estim Creat Clear Calc 96.23, Est GFR (MDRD) Af Amer 125, Est GFR (MDRD) Non-Af 103, BUN/Creatinine Ratio 20.5 H, Glucose 309 H, Calcium 9.1, Total Bilirubin 1.00, AST 49 H, ALT 35, Alkaline P hosphatase 145 H, Troponin I High Sens 231.6 H*, Total Protein 8.0, Albumin 4.1, Globulin 3.9, Albumin/Globulin Ratio 1.1 04/03/21 17:15: Ethyl Alcohol < 3.0 04/03/21 17:40: Ammonia < 10.0 L 04/03/21 19:13: Troponin I High Sens 225.5 H* Radiology Impression Brain CT 04/03/21 16:29 IMPRESSION: New left MCA/KEYBOARD INSTRUMENT TUNER watershed territory acute to subacute infarct. No evidence of intracranial hemorrhage or significant mass effect. Consider Brain MRI. Old infarcts in the right parietal and frontal lobes. Chronic involutional and ischemic changes of the brain. Electronically Signed: Beni Bryan MD at 18:51 EDT Tel , Service support , ADDENDUM: 04/03/21 1900 IMPRESSION: New left MCA/KEYBOARD INSTRUMENT TUNER watershed territory acute to subacute infarct. No evidence of intracranial hemorrhage or significant mass effect. Consider Brain MRI. Old infarcts in the right parietal and frontal lobes. Chronic involutional and ischemic changes of the brain. N.B. : The above Results were Read Back by Beni Bryan MD to Edward Zhou DO, and understanding confirmed on 04/03/2021 18:53:54 (ET). Electronically Signed: Beni Bryan MD at 18:51 EDT Tel , Service support , Chest X-Ray 04/03/21 18:15 IMPRESSION: No acute radiographic abnormalities. Electronically Signed: Beni Bryan MD at 18:42 EDT Tel , Service support , Head/Neck CTA 04/03/21 19:18 IMPRESSION: 1. Limited study due to a large amount of motion artifact. 2. Calcification in carotid bulb and proximal internal carotid arteries bilaterally stenosis of greater than 70% bilaterally. This has progressed from the reference examination. Individualized dose optimization techniques were used for this CT. at 2103 Reported and signed by: Donald Rivera MD Electronically Signed: Donald Rievra MD at 21:02 EDT Tel , Service support , ADDENDUM: 04/03/212115 IMPRESSION: 1. Limited study due to a large amount of motion artifact. 2. Calcification in carotid bulb and proximal internal carotid arteries bilaterally stenosis of greater than 70% bilaterally. This has progressed from the reference examination. Individualized dose optimization techniques were used for this CT. at 2103 Reported and signed by: Donald Rivera MD N.B. : The above Results were Read Back by Donald Rivera MD to Edward Zhou DO, and understanding confirmed on 04/03/2021 21:09:23 (ET). Electronically Signed: Donald Rivera MD at 21:02 EDT Tel , Service support , ADDENDUM: 04/03/212115 IMPRESSION: 1. Limited study due to a large amount of motion artifact. 2. Calcification in carotid bulb and proximal internal carotid arteries bilaterally stenosis of greater than 70% bilaterally. This has progressed from the reference examination. Individualized dose optimization techniques were used for this CT. at 2103 Reported and signed by: Donald Rivera MD Electronically Signed: Donald Rivera MD at 21:08 EDT Tel , Service support , N.B. : The above Results were Read Back by Donald Rivera MD to Edward Zhou DO, and understanding confirmed on 04/03/2021 21:09:23 (ET). Documented by User: Dr. Jayda Macrh MD 04/03/21 22:36 HPI Consult Data Date of Consult: 04/03/21 [facility] Medical History (Updated 04/03/21 @ 22:28 by Rebecca Ellison NP-C) History of CVA (cerebrovascular accident) Hyperlipidemia Hypertension Home Medications aspirin 81 mg PO DAILY@0800 #30 tab.chew 06/14/18 [Rx Last Taken Unknown] atorvastatin 80 mg PO QHS #30 tab 06/14/18 [Rx Last Taken Unknown] clopidogrel 75 mg PO DAILY #30 tab 06/14/18 [Rx Last Taken Unknown] lisinopril-hydrochlorothiazide 1 tab PO DAILY #30 tab 06/14/18 [Rx Last Taken Unknown] Allergy/AdvReac Type Severity Reaction Status Date / Time No Known Allergies Allergy Unverified 04/03/21 16:04 Social History Smoking Status: Current every day smoker tobacco type: cigarettes alcohol intake: never Lab / Micro Data Result Diagrams: 04/03/21 17:15 04/03/21 17:15
[2021-04-03 22:32] VITALS: BP 120/62; PULSE 93; RESP 16; O2SAT 99
[2021-04-03 23:46] VITALS: BP 122/71
[2021-04-04] MEDS: LORazepam 2 MG/ML Syringe 1 MG IV
[2021-04-04 00:41] VITALS: BP 119/72
--- NOTE | 2021-04-04 01:28 | ED.RN ---
attempted to call the transfer line at [facility] and no answer.
--- NOTE | 2021-04-04 01:29 | ED.RN ---
PER [facility]ARRY AT THE TRANSFER CENTER NO REPORT REQUIRED .
[2021-04-04 01:31] VITALS: BP 120/62; PULSE 93; RESP 16; TEMP 37.1; O2SAT 99
== END 2021-04-04 01:28 | disposition short-term general hospital (02) ==
PROVIDERS: Emergency Provider Student in an Organized Health Care Education/Training Program
DX: I63.9 Cerebral infarction, unspecified (principal); R79.89 Other specified abnormal findings of blood chemistry; E78.5 Hyperlipidemia, unspecified; I10 Essential (primary) hypertension; F17.210 Nicotine dependence, cigarettes, uncomplicated; Z86.73 Personal history of transient ischemic attack (TIA), and cerebral infarction without residual deficits; Z79.899 Other long term (current) drug therapy
CPT/HCPCS: 36415; 70450; 70496; 70498; 71045; 80053; 82077; 82140; 84484; 85025; 93005; 96361; 96374; 96376; 99285; J7030; Q9967; A4216

== ENCOUNTER 2024-11-18 20:56 | Emergency (ER) | payer SELFPAY ==
[2024-11-18 20:57] VITALS: BP 145/97; PULSE 119; RESP 34; O2SAT 98
--- NOTE | 2024-11-18 20:57 | CT_ITS ---
PROCEDURE: CT images of the brain were acquired without intravenous contrast. Multiplanar reformats were acquired. COMPARISON: CT brain 04/03/2021 FINDINGS: * ACUTE: Moderate-sized area of hypoattenuation in the left frontoparietal lobe, compatible with an acute left MCA distribution infarct. There is local mass effect with effacement of the surrounding sulci and gyri. * BRAIN PARENCHYMA: Stable sequela of encephalomalacia, in the right frontoparietal lobe, from prior right MCA distribution infarct. Right posterior horn lateral ventricle ex vacuo dilatation from adjacent encephalomalacia. Part supratentorial hypodensity, nonspecific, but likely secondary to chronic microvascular ischemia. Mild generalized volume loss with concordant ventricular enlargement. * VENTRICLES/EXTRA-AXIAL SPACES: No hydrocephalus or extra-axial fluid collections. * EXTRACRANIAL STRUCTURES: Visualized osseous structures are normal. Soft tissues are normal. Near complete opacification left maxillary sinus with mild mucoperiosteal reaction. Mild paranasal sinus mucosal thickening otherwise. Trace mastoid effusions. CT/STROKE Brain/Head without Cont IMPRESSION: Acute left MCA distribution infarct, involving the left frontoparietal lobe wit h local mass effect. No midline shift. Sequela of prior right MCA distribution infarct. Mild chronic microvascular ischemia and involutional changes. Communicated with Dr. Jaimes on 11/19/2019 at 9:29 p.m. Reading Location: [facility]
--- NOTE | 2024-11-18 20:57 | EKG12_ITS ---
Test Reason : DYSRHYTHMIA Blood Pressure : */* mmHG Vent. Rate : 112 BPM Atrial Rate : * BPM P-R Int : * ms QRS Dur : 94 ms QT Int : 364 ms P-R-T Axes : * 35 198 degrees QTcB Int : 496 ms Atrial fibrillation with rapid ventricular response with premature ventricular or aberrantly conducted complexes ST & T wave abnormality, consider lateral ischemia Abnormal ECG Confirmed by TRUPTI YANES, JOSE MIGUEL ([id number]), video effects editor JOSE LUIS LOCKETT ([id number]) on 11/21/2024 11:02:20 AM Referred By: Confirmed By: JOSE MIGUEL LYLES MD
--- NOTE | 2024-11-18 20:58 | CT_ITS ---
PROCEDURE: STROKE CTA HEAD AND NECK W/CON REASON FOR EXAM: NEURO DEFICIT, ACUTE, STROKE SUSPECTED TECHNIQUE: CTA HEAD AND NECK WITH IV CONTRAST AND 3-D CONTRAST: COMPARISON: None. FINDINGS: AORTIC ARCH The aortic arch is normal. There is a common trunk of the innominate and left common carotid arteries. Atherosclerotic calcification of the proximal brachiocephalic vessels without hemodynamically significant stenosis. The origins of the arch branch vessels are patent. EXTRACRANIAL CAROTIDS Postoperative changes left ICA and CCA stent. There is dense atherosclerotic calcification at the bifurcation and proximal ICA without hemodynamically significant stenosis, secondary to presence of the stent. On the right, there is dense atherosclerotic calcification with resultant luminal narrowing and up to 50% stenosis by NASCET criteria. Mild atherosclerotic calcification of the remainder of the bilateral ICA segments without hemodynamically significant stenosis. RIGHT ICA Maximum stenosis (NASCET): 50 % LEFT ICA Maximum stenosis (NASCET): <10 % SKULL BASE The petrous, cavernous and supraclinoid segments of the distal internal carotid arteries are patent with normal configuration. The ophthalmic arteries, posterior communicating artery and anterior choroidal artery origins are normal. INTRACRANIAL VASCULATURE Cerebral Arteries: Moderate atherosclerotic calcification of the bilateral carotid siphons, without hemodynamically significant stenosis. Mild atherosclerotic calcification of the left M1 without hemodynamically significant stenosis. Otherwise, the M1 is unremarkable. There is acute occlusion of the left MCA M2/insular segment (series 2 image 472). Remainder of the bilateral MCA segments are otherwise unremarkable. The RUDY and proximal children's counselor are within normal limits.. [place]: The A1 and P1 segments are patent. There is a patent anterior communicating artery with normal configuration. There are small patent posterior communicating arteries with normal configuration. Venous Drainage: Unremarkable. VERTEBROBASILAR SYSTEM Vertebral arteries are codominant. [id number] atherosclerotic calcification of the bilateral V4 segments to the level of the vertebrobasilar junction, without hemodynamically significant stenosis. 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 Otherwise, the proximal subclavian arteries, both vertebral arteries and basilar artery are widely patent. The cerebellar arteries are within normal limits. NONVASCULAR There is no abnormal intracranial enhancement. The ventricles, cisterns, sulci and parenchymal attenuation are normal. Bone windows are unremarkable. CT/STROKE CTA Head AND Neck W/Con IMPRESSION: Acute occlusion left M2 insular branch right of the bilateral MCAs are within n ormal limits. Dense atherosclerotic calcification of the bifurcation more prominent on the ri ght with up to 50% ICA stenosis. Postoperative changes left ICA and CCA stent. One or more dose reduction techniques were used (e.g., Automated exposure contr ol, adjustment of the mA and/or kV according to patient size, use of iterative reconstruction technique). Reading Location: [facility]
--- NOTE | 2024-11-18 21:04 | RAD_ITS ---
PROCEDURE: CHEST 1 VIEW 11/18/2024 REASON FOR EXAM: NEURO DEFICIT, ACUTE, STROKE SUSPECTED TECHNIQUE: Frontal view of the chest. COMPARISON: 04/03/2021 FINDINGS: The heart size is normal. Alveolar opacity in the lower right lung consistent with right middle lobe pneumonia. The bones are unremarkable. RAD/Chest 1 View IMPRESSION: Right middle lobe pneumonia. Reading Location: [id number]
--- NOTE | 2024-11-18 21:07 | ED.RN ---
x3 calls made to [facility] stroke line before they answered the call
[2024-11-18 21:08] VITALS: BMI 22.2
[2024-11-18 21:09] VITALS: PULSE 132; RESP 18; TEMP 36.5; O2SAT 98; BMI 22.2
[2024-11-18 21:10] LABS: Absolute Lymphocyte Count 1.46 X10^3/uL (0.83-4.51); Absolute Neutrophil Count 5.6 X10^3/uL (2.0-7.7); Basophil# 0.04 X10^3/uL; Basophil% 0.5 % (0-1); Eosinophil# 0.15 X10^3/uL; Eosinophils% 1.7 % (0-5); Hemoglobin 15.8 g/dL (13.0-16.5); Lymphocyte # 1.46 X10^3/ul (0.83-4.51); Lymphocyte % 16.7 % (19-41); Mean Corp Hgb Conc 33.6 g/dL (32-36); Mean Corpuscular Volume 86.2 fL (80-94); Mean Platelet Vol. 11.9 fl (6.2-12.0); Monocyte# 1.42 X10^3/uL; Monocyte% 16.3 % (0-10); NRBC Flagged by Analyzer 0 % (0-5); Neutrophil # 5.59 X10^3/uL (2.7-7.7); Platelet Count 191 K/mm3 (150-450); RBC Distribution Width CV 12.6 % (11.6-14.6); RBC Distribution Width SD 39.6 fl (35.1-43.9); Red Blood Count 5.45 M/mm3 (4.6-6.2); White Blood Count 8.7 K/mm3 (4.4-11.0)
--- NOTE | 2024-11-18 21:22 | ED.RN ---
pt unable to answer if he is taking home medications, mother is also unsure.
--- NOTE | 2024-11-18 21:23 | ED.RN ---
called [facility] neurology to see if they are ready to beam in. Dr. Jaimes would like to talk to neurologist prior to giving tenectaplase.
[2024-11-18 21:27] VITALS: BP 126/92; PULSE 135; RESP 18; O2SAT 97
[2024-11-18 21:27] LABS: Partial Thromboplast Time 23.9 Seconds (24.1-36.2)
[2024-11-18 21:30] VITALS: BP 140/89; PULSE 126; RESP 15; O2SAT 97
[2024-11-18 21:31] LABS: International Normalized Ratio 1.3; Prothrombin Time (Protime)PT. 16.3 SECONDS (11.7-14.9)
--- NOTE | 2024-11-18 21:35 | ED.RN ---
called pharmacy to inform no tenectaplase- times of symptoms have changed.
--- NOTE | 2024-11-18 21:50 | CM.ED ---
Social work Reason for referral: stroke alert This SW responded to stroke alert called for patient. SW entered patient's room, introducing self and role at [facility] to patient's mother, Julia Pelletier, who was bedside. Patient was sitting up in bed and was observed struggling to follow some commands from nursing. Patient's mother stated patient lives with patient's mother, but patient's mother states patient is hardly ever around due to work. Patient's mother states patient usually cooks all of the meals and patient's mother reported patient's previous strokes. Patient's mother was observed as tearful, but denied needing this SW to call anyone else to come support patient's mother during this time. Active listening and supportive presence provided as needed. Dipika Thompson, [employer], PLANT SCIENCES PROFESSOR
[2024-11-18 22:00] VITALS: PULSE 111; RESP 22; O2SAT 98
[2024-11-18 22:01] VITALS: BP 137/82; BP 140/89; PULSE 126; PULSE 153; RESP 15; RESP 26; TEMP 36.5; O2SAT 96; O2SAT 97
[2024-11-18 22:03] LABS: Anion Gap 18 (5-15); BUN 20 mg/dL (4-19); BUN/Creat Ratio 18.8 RATIO (10-20); Calcium,Total 8.7 mg/dL (7.6-11.0); Carbon Dioxide 22.6 mmol/L (21.0-32.0); Chloride 93 mmol/L (98-108); Creatinine, Serum 1.05 mg/dL (0.70-1.20); EST Glomerular Filtration Rate 83 (>60); Estimated Creatinine Clearance 70.81 ml/min (50-250); Glucose 438 mg/dL (70-99); Sodium Level 134 mmol/L (133-145)
[2024-11-18 22:07] LABS: Troponin T High Sensitivity 274 ng/L (<=22)
[2024-11-18] MEDS: dilTIAZem 25 MG/5 ML Vial 20 MG IV BOLUS (22:17)
[2024-11-18] MEDS: Haloperidol Lactate 5 MG/ML Vial 2.5 MG IV (22:29)
[2024-11-18] MEDS: Diltiazem 125 MG in Dextrose 5%-Water (100mL Bag) 100 ML IV (22:30)
--- NOTE | 2024-11-19 00:04 | EDS_ITS ---
HPI History of Present Illness Chief Complaint: Stroke Alert Narrative Narrative: Patient is a 59-year-old male with past medical hypertension, hyperlipidemia, CVA who presents to the emergency department with a chief complaint of strokelike symptoms. According EMS his last known well was 183. According to them his mother was with him when she noted that he was unable to get up off the couch and was having difficulty speaking therefore she called EMS to have him brought here for the valuation management. They are unsure if he is on any blood thinning medications. They did note that he was moving extremities and seemed agitated was trying to rip off the IV that they placed. [facility] Medical History Hyperlipidemia Hypertension History of CVA (cerebrovascular accident) Home Medications ?Medication ?Instructions ?Recorded ?Last Taken ?Type aspirin 81 mg chewable tablet 81 mg PO DAILY@0800 ##30 06/14/18 Unknown Rx atorvastatin 80 mg tablet 80 mg PO QHS #30 tabs Unknown Rx clopidogrel 75 mg tablet 75 mg PO DAILY #30 tabs 10/0 04/24 Unknown Rx lisinopril 10 1 tab PO DAILY #30 tabs 10/0 04/24 Unknown Rx mg-hydrochlorothiazide 12.5 mg tablet Allergy/AdvReac Type Severity Reaction Status Date / Time No Known Allergies Allergy Verified 11/18/24 20:59 Social History Smoking Status: Current every day smoker tobacco type: cigarettes alcohol intake: never ROS ROS ED ROS Narrative Review of systems is unobtainable secondary to his expressive aphasia therefore acute care caveat applies EXAM Physical Exam Narrative Exam Narrative: General: Patient was sitting on the cot was moving his extremities did appear to be agitated trying to rip out his IV Head: Atraumatic, normocephalic Eyes: PERRL bilaterally, EOMI bilateral, no conjunctival injection noted Neck: Soft, supple, trachea midline Cardiovascular: Patient tachycardic with an irregular irregular rhythm Respiratory: Clear to auscultation Abdomen: Soft, nondistended Extremities: Patient was moving all extremities Neurological: Patient had expressive aphasia and on exam NIH 6 GCS 15 Skin: Warm, dry, intact no rashes lesions noted Const Vital Signs: 11/18/24 20:57 11/18/24 21:09 11/18/24 21:27 Temperature 97.7 F L Temperature Source Oral Pulse Rate 119 H 132 H 135 H Respiratory Rate 34 H 18 18 Blood Pressure 145/97 H 126/92 H Blood Pressure Mean 113 103 Pulse Ox 98 98 97 Oxygen Delivery Method Room Air Room Air Room Air 11/18/24 21:30 11/18/24 22:00 11/18/24 22:01 Temperature Temperature Source Pulse Rate 126 H 111 H 153 H Respiratory Rate 15 22 H 26 H Blood Pressure 140/89 H 137/82 H Blood Pressure Mean 106 100 Pulse Ox 97 98 96 Oxygen Delivery Method Room Air Room Air Room Air 11/18/24 22:01 Temperature 97.7 F L Temperature Source Pulse Rate 126 H Respiratory Rate 15 Blood Pressure 140/89 H Blood Pressure Mean 106 Pulse Ox 97 Oxygen Delivery Method MDM MDM MDM Narrative Medical decision making narrative: Patient is a's 59-year-old male who presented to the emergency department with a chief complaint of aphasia and strokelike symptoms. On the differential diagnose includes but limited to intracranial hemorrhage, ischemic stroke, large vessel occlusion, hypoglycemia, electrolyte abnormality. Once workup is obtained and reviewed he will be reevaluated. After further discussion after the patient's mother arrived she noted that his symptoms started yesterday 11/17/2024 when she noted that he had difficulty reaching for things therefore patient is not a tenecteplase candidate. Patient was evaluated on the teleneurology by Dr. Dickerson who states that the patient will be transferred down to [facility] for further evaluation management. He states that new literature is out and they do not retrieve them to clots anymore as there is no benefit. Patient's CBC showed no evidence leukocytosis white blood count normal 8.7, hemoglobin 15.8, platelet count was 191. Patient's INR 1.3, PT of 16.3. Patient sodium normal 134, potassium normal at 4, creatinine was 1.05. Patient's glucose was elevated 438. Patient's troponin was noted to be 274. EKG reviewed showed atrial fibrillation with rapid ventricular response with a rate of 112 bpm. Patient's chest x-ray reviewed by myself and by radiology showed a right middle lobe pneumonia this returned after the patient left via helicopter. Patient CT head and brain without contrast showed acute left MCA distribution infarct involving the left frontoparietal lobe with local mass effect no midline shift. Sequelae of prior right MCA distribution infarct mild chronic microvascular ischemic and involutional changes. Patient CTA head and neck which showed acute occlusion of the left M2 insular branch of right of the bilateral MCAs within normal limits. Dense atherosclerotic calcification of the bifurcation more prominent on the right up to 50% ICA stenosis. Postoperative changes of the left ICA and CCA stent. Patient's heart rate did elevate to the 140s and per neurology's recommendation rate control was given with Cardizem bolus followed by drip. Patient did become agitated therefore he was given 2.5 mg of Haldol prior to departure. We did discuss this with the patient's mother at bedside she is agreeable this plan. The accepting physician was Dr. Nye at [facility]. All question concerns answered bedside. Patient is transported via [facility]. Critical care time 43 minutes Lab Data Labs: Laboratory Results - last 24 hr 11/18/24 20:58 WBC 8.7 RBC 5.45 Hgb 15.8 Hct 47.0 MCV 86.2 MCH 29.0 MCHC 33.6 RDW Std Deviation 39.6 RDW Coeff of [place] 12.6 Plt Count 191 MPV 11.9 Immature Gran % (Auto) 0.800 Neut % (Auto) 64.0 Lymph % (Auto) 16.7 L [place] % (Auto) 16.3 H Eos % (Auto) 1.7 Baso % (Auto) 0.5 Absolute Neuts (auto) 5.6 Absolute Lymphs (auto) 1.46 Nucleated RBC % 0 PT 16.3 H INR 1.3 APTT 23.9 L Sodium 134 Potassium 4.0 Chloride 93 L Carbon Dioxide 22.6 Anion Gap 18 H BUN 20 H Creatinine 1.05 Estim Creat Clear Calc 70.81 Est GFR (MDRD) Non-Af 83 BUN/Creatinine Ratio 18.8 Glucose 438 H Calcium 8.7 Troponin T High Sens 274 H* Radiography Diagnostic Testing: Clinical Impression(s) from Imaging Studies Brain CT 11/18/24 20:57 IMPRESSION: Acute left MCA distribution infarct, involving the left frontoparietal lobe with local mass effect. No midline shift. Sequela of prior right MCA distribution infarct. Mild chronic microvascular ischemia and involutional changes. Communicated with Dr. Jaimes on 11/19/2019 at 9:29 p.m. Reading [facility] Head[facility]Neck CTA 11/18/24 20:58 IMPRESSION: Acute occlusion left M2 insular branch right of the bilateral MCAs are within normal limits. Dense atherosclerotic calcification of the bifurcation more prominent on the right with up to 50% ICA stenosis. Postoperative changes left ICA and CCA stent. One or more dose reduction techniques were used (e.g., Automated exposure control, adjustment of the mA and/or kV according to patient size, use of iterative reconstruction technique). Reading [facility] Chest X-Ray 11/18/24 21:04 IMPRESSION: Right middle lobe pneumonia. Reading Location: [id number] Discharge Plan Triage Chief Complaint: Stroke Alert ED Provider: Ry Jaimes Dx/Rx/DC Orders Prescriptions: No Action atorvastatin 80 MG tablet 80 mg PO QHS Qty: 30 0RF clopidogrel 75 MG tablet 75 mg PO DAILY Qty: 30 0RF aspirin 81 MG tablet,chewable 81 mg PO DAILY@0800 Qty: 30 0RF lisinopril-hydrochlorothiazide 1 TABLET tablet 1 tab PO DAILY Qty: 30 0RF Primary Care Provider: Care Physician,No Primary Referrals: Care Physician,No Primary [Primary Care Provider] - Print Language: Urugu[place] Disposition Disposition: Acute Care Hospital Discharge Location: [facility] Discharge Date/Time: 11/18/24 22:47
== END 2024-11-18 22:47 | disposition short-term general hospital (02) ==
PROVIDERS: Emergency Provider Emergency Medicine; Visit Provider Emergency Medicine
DX: I63.89 Other cerebral infarction (principal); I48.91 Unspecified atrial fibrillation; R47.01 Aphasia; I65.23 Occlusion and stenosis of bilateral carotid arteries; J18.9 Pneumonia, unspecified organism; I10 Essential (primary) hypertension; E78.5 Hyperlipidemia, unspecified; F17.210 Nicotine dependence, cigarettes, uncomplicated; Z86.73 Personal history of transient ischemic attack (TIA), and cerebral infarction without residual deficits; Z79.82 Long term (current) use of aspirin; Z79.02 Long term (current) use of antithrombotics/antiplatelets; Z79.899 Other long term (current) drug therapy
CPT/HCPCS: 70450; 70496; 70498; 71045; 80048; 84484; 85025; 85610; 85730; 93005; 96365; 96375; 99285; Q9967; A4216

== ENCOUNTER 2025-04-06 12:49 | Inpatient (IN) | payer OTHER, MEDICAID, SELFPAY ==
[2025-04-06 12:49] VITALS: BP 101/55; PULSE 99; RESP 14; TEMP 36.1; O2SAT 93
[2025-04-06 16:03] VITALS: BP 101/55; PULSE 99; RESP 14; TEMP 36.1; O2SAT 93
[2025-04-06 16:34] LABS: Hematocrit 37.5 % (40-54); Hemoglobin 13.0 g/dL (13.0-16.5); Immature Granulocytes Count 0.000 X10^3/uL (0.0-0.0); Mean Corp Hgb Conc 34.7 g/dL (32-36); Mean Corpuscular Volume 94.5 fL (80-94); Mean Platelet Vol. 10.3 fl (6.2-12.0); NRBC Flagged by Analyzer 0 % (0-5); Platelet Count 131 K/mm3 (150-450); RBC Distribution Width CV 13.9 % (11.6-14.6); RBC Distribution Width SD 47.6 fl (35.1-43.9); Red Blood Count 3.97 M/mm3 (4.6-6.2); White Blood Count 3.5 K/mm3 (4.4-11.0)
[2025-04-06 16:41] LABS: Anion Gap 9 (5-15); BUN 24 mg/dL (4-19); BUN/Creat Ratio 28.5 RATIO (10-20); Calcium,Total 9.6 mg/dL (7.6-11.0); Carbon Dioxide 30.1 mmol/L (21.0-32.0); Chloride 101 mmol/L (98-108); Estimated Creatinine Clearance 68.62 ml/min (50-250); Glucose 121 mg/dL (70-99); Potassium 4.0 mmol/L (3.3-5.1)
[2025-04-06 17:12] LABS: Prothrombin Time (Protime)PT. 16.8 SECONDS (11.7-14.9)
[2025-04-06 17:59] VITALS: BP 145/85; PULSE 47; RESP 18; TEMP 36.7; O2SAT 100
[2025-04-06 22:17] VITALS: BP 148/78; PULSE 48; RESP 16; TEMP 36.5; O2SAT 100
[2025-04-07] VITALS (20 sets, daily range): BP systolic 90–142; BP diastolic 66–124; PULSE 49–131; RESP 11–20; TEMP 36.2–36.9; O2SAT 97–100; BMI 15.1
[2025-04-07 06:16] LABS: Hematocrit 33.5 % (40-54); Hemoglobin 11.7 g/dL (13.0-16.5); Immature Granulocytes Count 0.010 X10^3/uL (0.0-0.0); Mean Corp Hgb Conc 34.9 g/dL (32-36); Mean Corpuscular Volume 94.6 fL (80-94); Mean Platelet Vol. 10.0 fl (6.2-12.0); NRBC Flagged by Analyzer 0 % (0-5); Platelet Count 124 K/mm3 (150-450); RBC Distribution Width CV 13.8 % (11.6-14.6); RBC Distribution Width SD 47.5 fl (35.1-43.9); Red Blood Count 3.54 M/mm3 (4.6-6.2); White Blood Count 2.7 K/mm3 (4.4-11.0)
[2025-04-07 06:29] LABS: Partial Thromboplast Time 32.6 Seconds (24.1-36.2)
[2025-04-07 06:40] LABS: Anion Gap 10 (5-15); BUN 22 mg/dL (4-19); BUN/Creat Ratio 27.6 RATIO (10-20); Calcium,Total 9.4 mg/dL (7.6-11.0); Carbon Dioxide 29.0 mmol/L (21.0-32.0); Chloride 104 mmol/L (98-108); Estimated Creatinine Clearance 71.98 ml/min (50-250); Glucose 96 mg/dL (70-99); Potassium 3.4 mmol/L (3.3-5.1)
[2025-04-07] MEDS: Lorazepam 2 MG/ML WCH Syringe IV (16:00)
[2025-04-07 16:09] LABS: Allen Test Positive; Base Excess -3 mmol/L (-2 to +2); FI02 40.0; PO2 181 mmHG (75-100); SITE R Radial; SO2 100 % (95-99)
[2025-04-07] MEDS: levETIRAcetam IV 1,000 MG/100 ML BAG 400 MG IV ×2 (17:19→22:11)
[2025-04-07] MEDS: 0.9% Normal Saline (1000mL) 1,000 ML 125 ML IV (17:33)
[2025-04-07] MEDS: Jevity 1.5 1,000 ML 60 ML GT (17:43)
[2025-04-07 17:55] LABS: AST(SGOT) 44 U/L (<=37); Alanine Aminotransfer ALT/SGPT 34 U/L (<=46); Albumin, Serum 3.9 g/dL (3.5-5.0); Alkaline Phosphatase 85 U/L (40-129); Anion Gap 19 (5-15); BUN 25 mg/dL (4-19); BUN/Creat Ratio 24.5 RATIO (10-20); Calcium,Total 9.6 mg/dL (7.6-11.0); Carbon Dioxide 20.8 mmol/L (21.0-32.0); Chloride 101 mmol/L (98-108); Estimated Creatinine Clearance 57.73 ml/min (50-250); Globulin 3.1 g/dL (2.2-4.2); Glucose 112 mg/dL (70-99); Potassium 4.0 mmol/L (3.3-5.1)
[2025-04-07 18:09] LABS: Hematocrit 37.0 % (40-54); Hemoglobin 12.4 g/dL (13.0-16.5); Immature Granulocytes Count 0.010 X10^3/uL (0.0-0.0); Mean Corp Hgb Conc 33.5 g/dL (32-36); Mean Corpuscular Volume 98.4 fL (80-94); Mean Platelet Vol. 11.2 fl (6.2-12.0); NRBC Flagged by Analyzer 0 % (0-5); POSITIVE COUNT YES; Platelet Count 124 K/mm3 (150-450); RBC Distribution Width CV 14.1 % (11.6-14.6); RBC Distribution Width SD 50.4 fl (35.1-43.9); Red Blood Count 3.76 M/mm3 (4.6-6.2); White Blood Count 6.0 K/mm3 (4.4-11.0)
[2025-04-07 18:42] LABS: Differential Indicated SCAN CRITERIA MET
[2025-04-07 20:59] LABS: Reflex Lactate? Y
[2025-04-07] MEDS: APIXABAN 5 MG TABLET PO (22:11)
[2025-04-07] MEDS: 0.9% Saline Lock 10 ML Syringe IV (22:23)
[2025-04-08] VITALS (20 sets, daily range): BP systolic 98–126; BP diastolic 52–97; PULSE 43–71; RESP 12–19; TEMP 35.6–36.8; O2SAT 95–100; BMI 15.9
[2025-04-08] MEDS: 0.9% Normal Saline (1000mL) 1,000 ML 125 ML IV (01:49)
[2025-04-08] MEDS: APIXABAN 5 MG TABLET GT ×2 (10:05→21:20)
[2025-04-08] MEDS: levETIRAcetam IV 1,000 MG/100 ML BAG 400 MG IV (10:13)
[2025-04-08] MEDS: Jevity 1.5 1,000 ML 60 ML GT (10:26)
[2025-04-08] MEDS: Multivitamin/Minerals/Iron (9 mg/15 ml) Liquid GT (13:00)
[2025-04-08] MEDS: levETIRAcetam Oral Solution 500 MG/5 ML GT (21:29)
[2025-04-09] MEDS: Jevity 1.5 1,000 ML 60 ML GT ×2 (02:28→19:24)
[2025-04-09 03:00] VITALS: BP 144/82; PULSE 93; RESP 16; TEMP 35.8; O2SAT 100
[2025-04-09 06:00] VITALS: BMI 16.1
[2025-04-09 07:24] VITALS: O2SAT 95
[2025-04-09 08:10] LABS: Hematocrit 35.2 % (40-54); Hemoglobin 11.6 g/dL (13.0-16.5); Immature Granulocytes Count 0.000 X10^3/uL (0.0-0.0); Mean Corp Hgb Conc 33.0 g/dL (32-36); Mean Corpuscular Volume 100.9 fL (80-94); Mean Platelet Vol. 9.8 fl (6.2-12.0); NRBC Flagged by Analyzer 0 % (0-5); POSITIVE DIFFERENTIAL YES; Platelet Count 107 K/mm3 (150-450); RBC Distribution Width CV 14.4 % (11.6-14.6); RBC Distribution Width SD 52.7 fl (35.1-43.9); Red Blood Count 3.49 M/mm3 (4.6-6.2); White Blood Count 3.1 K/mm3 (4.4-11.0)
[2025-04-09 08:37] LABS: Anion Gap 11 (5-15); BUN 18 mg/dL (4-19); BUN/Creat Ratio 27.8 RATIO (10-20); Calcium,Total 8.7 mg/dL (7.6-11.0); Carbon Dioxide 22.2 mmol/L (21.0-32.0); Chloride 106 mmol/L (98-108); Estimated Creatinine Clearance 95.59 ml/min (50-250); Glucose 196 mg/dL (70-99); Potassium 3.7 mmol/L (3.3-5.1)
[2025-04-09] MEDS: APIXABAN 5 MG TABLET GT ×2 (10:31→21:56)
[2025-04-09] MEDS: levETIRAcetam Oral Solution 500 MG/5 ML GT ×2 (10:33→21:56)
[2025-04-09] MEDS: Multivitamin/Minerals/Iron (9 mg/15 ml) Liquid GT (10:33)
[2025-04-09 10:42] VITALS: BP 113/55; PULSE 55; RESP 18; TEMP 36.9; O2SAT 98
[2025-04-09 17:46] VITALS: BP 135/75; PULSE 58; RESP 18; TEMP 36.6; O2SAT 100
[2025-04-09 21:59] VITALS: BP 157/86; PULSE 54; RESP 16; TEMP 36.1; O2SAT 100
[2025-04-10 03:56] VITALS: BP 158/93; PULSE 94; RESP 16; TEMP 36.2; O2SAT 100
[2025-04-10 04:22] VITALS: BMI 17.3
[2025-04-10 06:18] LABS: Hematocrit 31.9 % (40-54); Hemoglobin 10.9 g/dL (13.0-16.5); Immature Granulocytes Count 0.010 X10^3/uL (0.0-0.0); Mean Corp Hgb Conc 34.2 g/dL (32-36); Mean Corpuscular Volume 96.4 fL (80-94); Mean Platelet Vol. 10.2 fl (6.2-12.0); NRBC Flagged by Analyzer 0 % (0-5); POSITIVE DIFFERENTIAL YES; Platelet Count 120 K/mm3 (150-450); RBC Distribution Width CV 13.9 % (11.6-14.6); RBC Distribution Width SD 49.3 fl (35.1-43.9); Red Blood Count 3.31 M/mm3 (4.6-6.2); White Blood Count 3.8 K/mm3 (4.4-11.0)
[2025-04-10 06:50] LABS: Anion Gap 12 (5-15); BUN 16 mg/dL (4-19); BUN/Creat Ratio 26.0 RATIO (10-20); Calcium,Total 8.9 mg/dL (7.6-11.0); Carbon Dioxide 23.7 mmol/L (21.0-32.0); Chloride 103 mmol/L (98-108); Estimated Creatinine Clearance 111.24 ml/min (50-250); Glucose 251 mg/dL (70-99); Potassium 3.6 mmol/L (3.3-5.1)
[2025-04-10 09:30] VITALS: BP 106/67; PULSE 63; RESP 14; TEMP 36.9; O2SAT 100
[2025-04-10] MEDS: APIXABAN 5 MG TABLET GT ×2 (09:44→21:35)
[2025-04-10] MEDS: levETIRAcetam Oral Solution 500 MG/5 ML GT ×2 (09:45→21:35)
[2025-04-10] MEDS: Multivitamin/Minerals/Iron (9 mg/15 ml) Liquid GT (09:46)
[2025-04-10] MEDS: Jevity 1.5 1,000 ML 60 ML GT (14:56)
[2025-04-10 15:10] VITALS: BP 100/68; PULSE 61; RESP 14; TEMP 36.8; O2SAT 100
[2025-04-10 21:30] VITALS: BP 110/68; PULSE 60; RESP 16; TEMP 36.8; O2SAT 100
[2025-04-10] MEDS: MELATONIN 3 MG TABLET GT (21:35)
[2025-04-11 03:40] VITALS: BP 101/71; PULSE 60; RESP 16; TEMP 36.7; O2SAT 100
[2025-04-11 05:22] VITALS: BMI 17.2
[2025-04-11] MEDS: Jevity 1.5 1,000 ML 60 ML GT (06:37)
[2025-04-11 06:51] LABS: Hematocrit 28.6 % (40-54); Hemoglobin 9.8 g/dL (13.0-16.5); Mean Corp Hgb Conc 34.3 g/dL (32-36); Mean Corpuscular Volume 95.7 fL (80-94); Mean Platelet Vol. 10.2 fl (6.2-12.0); Platelet Count 123 K/mm3 (150-450); RBC Distribution Width CV 14.2 % (11.6-14.6); RBC Distribution Width SD 49.5 fl (35.1-43.9); Red Blood Count 2.99 M/mm3 (4.6-6.2); White Blood Count 2.4 K/mm3 (4.4-11.0)
[2025-04-11 07:32] LABS: Anion Gap 10 (5-15); BUN 17 mg/dL (4-19); BUN/Creat Ratio 28.0 RATIO (10-20); Calcium,Total 8.9 mg/dL (7.6-11.0); Carbon Dioxide 24.7 mmol/L (21.0-32.0); Chloride 103 mmol/L (98-108); Estimated Creatinine Clearance 110.86 ml/min (50-250); Glucose 234 mg/dL (70-99); Potassium 3.7 mmol/L (3.3-5.1)
[2025-04-11 08:28] VITALS: BP 101/60; PULSE 57; RESP 16; TEMP 36.7; O2SAT 100
[2025-04-11] MEDS: levETIRAcetam Oral Solution 500 MG/5 ML GT ×2 (08:32→20:52)
[2025-04-11] MEDS: Multivitamin/Minerals/Iron (9 mg/15 ml) Liquid GT (08:32)
[2025-04-11] MEDS: APIXABAN 5 MG TABLET GT ×2 (08:32→20:52)
[2025-04-11 13:40] VITALS: BP 109/67; PULSE 54; RESP 16; TEMP 36.5; O2SAT 100
[2025-04-11 20:45] VITALS: BP 115/70; PULSE 61; RESP 16; TEMP 36.6; O2SAT 100
[2025-04-11] MEDS: MELATONIN 3 MG TABLET GT (20:53)
[2025-04-12] MEDS: Jevity 1.5 1,000 ML 60 ML GT ×2 (00:46→23:57)
[2025-04-12 03:23] VITALS: BP 136/77; PULSE 62; RESP 16; TEMP 36.6; O2SAT 100
[2025-04-12 06:00] VITALS: BMI 16.4
[2025-04-12 06:17] LABS: Hematocrit 28.9 % (40-54); Hemoglobin 9.8 g/dL (13.0-16.5); Immature Granulocytes Count 0.010 X10^3/uL (0.0-0.0); Mean Corp Hgb Conc 33.9 g/dL (32-36); Mean Corpuscular Volume 97.0 fL (80-94); Mean Platelet Vol. 9.9 fl (6.2-12.0); NRBC Flagged by Analyzer 0 % (0-5); POSITIVE DIFFERENTIAL YES; Platelet Count 113 K/mm3 (150-450); RBC Distribution Width CV 14.2 % (11.6-14.6); RBC Distribution Width SD 50.3 fl (35.1-43.9); Red Blood Count 2.98 M/mm3 (4.6-6.2); White Blood Count 2.6 K/mm3 (4.4-11.0)
[2025-04-12 06:21] LABS: Differential Indicated SCAN CRITERIA MET
[2025-04-12 06:59] LABS: Differential Comment SCANNED
[2025-04-12 07:04] LABS: Anion Gap 10 (5-15); BUN 18 mg/dL (4-19); BUN/Creat Ratio 28.2 RATIO (10-20); Calcium,Total 8.9 mg/dL (7.6-11.0); Carbon Dioxide 26.5 mmol/L (21.0-32.0); Chloride 103 mmol/L (98-108); Estimated Creatinine Clearance 100.46 ml/min (50-250); Glucose 257 mg/dL (70-99); Magnesium 2.1 mg/dL (1.5-2.2); Potassium 3.8 mmol/L (3.3-5.1)
[2025-04-12 08:15] VITALS: PULSE 54
[2025-04-12] MEDS: Multivitamin/Minerals/Iron (9 mg/15 ml) Liquid GT (08:16)
[2025-04-12] MEDS: APIXABAN 5 MG TABLET GT ×2 (08:16→20:52)
[2025-04-12] MEDS: levETIRAcetam Oral Solution 500 MG/5 ML GT ×2 (08:18→20:52)
[2025-04-12 09:15] VITALS: BP 120/73; PULSE 54; RESP 17; TEMP 36.8; O2SAT 100
[2025-04-12 15:15] VITALS: BP 123/67; PULSE 56; RESP 17; TEMP 36.4; O2SAT 100
[2025-04-12 20:49] VITALS: BP 137/80; PULSE 57; RESP 16; TEMP 36.6; O2SAT 100
[2025-04-13 03:45] VITALS: BP 131/66; PULSE 55; RESP 16; TEMP 36.7; O2SAT 100
[2025-04-13 05:22] VITALS: BMI 17.6
[2025-04-13] MEDS: 0.9% Saline Lock 10 ML Syringe IV (05:59)
[2025-04-13 06:21] LABS: Hematocrit 31.6 % (40-54); Hemoglobin 10.8 g/dL (13.0-16.5); Immature Granulocytes Count 0.010 X10^3/uL (0.0-0.0); Mean Corp Hgb Conc 34.2 g/dL (32-36); Mean Corpuscular Volume 96.9 fL (80-94); Mean Platelet Vol. 10.1 fl (6.2-12.0); NRBC Flagged by Analyzer 0 % (0-5); Platelet Count 119 K/mm3 (150-450); RBC Distribution Width CV 14.1 % (11.6-14.6); RBC Distribution Width SD 50.4 fl (35.1-43.9); Red Blood Count 3.26 M/mm3 (4.6-6.2); White Blood Count 2.7 K/mm3 (4.4-11.0)
[2025-04-13 07:02] LABS: Anion Gap 9 (5-15); BUN 19 mg/dL (4-19); BUN/Creat Ratio 30.8 RATIO (10-20); Calcium,Total 8.9 mg/dL (7.6-11.0); Carbon Dioxide 27.5 mmol/L (21.0-32.0); Chloride 102 mmol/L (98-108); Estimated Creatinine Clearance 111.12 ml/min (50-250); Glucose 265 mg/dL (70-99); Potassium 3.8 mmol/L (3.3-5.1)
[2025-04-13] MEDS: Multivitamin/Minerals/Iron (9 mg/15 ml) Liquid GT (08:51)
[2025-04-13] MEDS: APIXABAN 5 MG TABLET GT (08:51)
[2025-04-13] MEDS: levETIRAcetam Oral Solution 500 MG/5 ML GT (08:52)
[2025-04-13 09:23] VITALS: BP 119/74; PULSE 58; RESP 15; TEMP 36.6; O2SAT 100
== END 2025-04-13 13:46 | disposition skilled nursing facility (03) | DRG 393 ==
LOC: ED 14:19 → MS3 04-07 07:08 → PCU 04-10 06:56 → MS3 04-10 11:06 → ICU 04-10 11:06 → PCU 04-11 07:13 → ICU 04-19 10:55
PROVIDERS: Anesthesiology; Internal Medicine Gastroenterology; Student in an Organized Health Care Education/Training Program; Admitting Provider Hospitalist; Emergency Provider Surgery; Visit Provider Internal Medicine
PROC: 0DJ08ZZ Inspection of Upper Intestinal Tract, Via Natural or Artificial Opening Endoscopic (ICD-10-PCS; CPT 43235; principal; 2025-04-07 12:40)
DX: K94.23 Gastrostomy malfunction (principal); E43 Unspecified severe protein-calorie malnutrition; K22.6 Gastro-esophageal laceration-hemorrhage syndrome; D61.818 Other pancytopenia; I50.22 Chronic systolic (congestive) heart failure; Z68.1 Body mass index [BMI] 19.9 or less, adult; Z66 Do not resuscitate; I11.0 Hypertensive heart disease with heart failure; E11.9 Type 2 diabetes mellitus without complications; I69.320 Aphasia following cerebral infarction; K25.9 Gastric ulcer, unspecified as acute or chronic, without hemorrhage or perforation; R56.9 Unspecified convulsions; I48.0 Paroxysmal atrial fibrillation; Z89.611 Acquired absence of right leg above knee; I69.391 Dysphagia following cerebral infarction; E78.5 Hyperlipidemia, unspecified; F17.210 Nicotine dependence, cigarettes, uncomplicated; I69.398 Other sequelae of cerebral infarction; R00.1 Bradycardia, unspecified; S50.312A Abrasion of left elbow, initial encounter; R53.81 Other malaise; T46.2X5A Adverse effect of other antidysrhythmic drugs, initial encounter; Z79.01 Long term (current) use of anticoagulants; Z86.19 Personal history of other infectious and parasitic diseases; Z79.82 Long term (current) use of aspirin; Z79.899 Other long term (current) drug therapy; Z86.79 Personal history of other diseases of the circulatory system
CPT/HCPCS: 36415; 36600; 70470; 80048; 80053; 82803; 82962; 83036; 83605; 83735; 84100; 85025; 85027; 85610; 85730; 87040; 87077; 87149; 87186; 93005; 95819; 97110; 97162; 97167; 97530; 97802; 97803; 99285; 99406; C1889; Q9967; A4216; J2405